=== PATIENT | male | born 1940 | race Caucasian/White ===

== ENCOUNTER 2018-04-25 18:21 | Emergency (ER) | payer MEDICARE ==
[~2018-04-25] VITALS: Ht 185.4 cm; Wt 136.1 kg
[~2018-04-25 18:21] MED LIST: ASPIR-LOW81 MG PO; ASPIRIN EC325 MG PO; DOXAZOSIN MESYLA2 MG PO; IBUPROFEN600 MG PO; INDOMETHACIN50 MG PO; LIPITOR20 MG PO; LISINOPRIL-HCT1 EAC1 PO; MOBIC7.5 MG PO; NICORETTE4 M1 BUCCAL
== END 2018-04-25 19:56 | disposition home or self-care (01) ==
LOC: ED 18:21
DX: M17.12 Unilateral primary osteoarthritis, left knee (principal); I10 Essential (primary) hypertension; Z87.891 Personal history of nicotine dependence; Z79.899 Other long term (current) drug therapy
CPT/HCPCS: 73560; 99283

== ENCOUNTER 2021-03-01 03:52 | Emergency (ER) | payer MEDICARE ==
[~2021-03-01] VITALS: Ht 185.4 cm; Wt 136.1 kg
[2021-03-01] MEDS ORDERED: METOPROLOL SUC100 MG PO (04:04)
--- NOTE | 2021-03-01 18:43 | EKG ---
[facility] [address] [place] [address] Signed Sinus tachycardia with premature ventricular complexes or fusion complexes Nonspecific ST abnormality Abnormal ECG When compared with ECG of 11-SEP-2016 10:24, fusion complexes are now present premature ventricular complexes are now present premature supraventricular complexes are no longer present Vent. rate has increased BY 44 BPM Confirmed by MEGAN SCHRADER DO ([id number]) on 03/01/2021 6:43:36 PM Electronically Signed By: MEGAN SCHRADER DO 03/01/21 1843 PATIENT NAME: MELANIE HORN Electrocardiogram DATE OF : 42 PHYSICIAN: MEGAN SCHRADER DO REPORT #: [id number] REPORT IS CONFIDENTIAL AND NOT TO BE RELEASED WITHOUT AUTHORIZATION
== END 2021-03-01 08:59 | disposition short-term general hospital (02) ==
LOC: ED 03:52
DX: I71.02 Dissection of abdominal aorta (principal); K66.1 Hemoperitoneum; N28.9 Disorder of kidney and ureter, unspecified; I10 Essential (primary) hypertension; Z20.822 Contact with and (suspected) exposure to COVID-19; F17.200 Nicotine dependence, unspecified, uncomplicated; Z79.899 Other long term (current) drug therapy; Z86.73 Personal history of transient ischemic attack (TIA), and cerebral infarction without residual deficits
CPT/HCPCS: 51702; 71045; 71250; 74176; 80053; 81001; 84484; 85025; 87088; 93005; 93010; 99285-25; J2270; J2405; J7030; U0003

== ENCOUNTER 2021-04-27 18:48 | Inpatient (IN) | payer MEDICARE ==
[~2021-04-27] VITALS: Ht 185.4 cm; Wt 115.0 kg
[~2021-04-27 18:48] MED LIST changes: +METOPROLOL SUC100 MG PO
[2021-04-27] MEDS ORDERED: CHANTIX1 EACH PO (19:20)
--- NOTE | 2021-04-27 22:45 | NUR ---
PT ADMITTED TO CCU ROOM 126 FOR COVID PNEUMONIA. ARRIVES AWAKE AND ALERT ON NRB 15+L WITH SATS 90-91%. ASKED PT HOW HE IS DOING AND HE STATES "I FEEL ALRIGHT". RT IN ROOM TO PLACE PT ON CPAP, 14 AND 100% FIO2 SPO2 100%. ABG DRAWN BY RT. ASSESSMENT DONE/ LUNGS DIMINISHED THROUGHOUT WITH FEW COARSE SOUNDS HEARD IN BASES. PT DENIES NEED, CALL LIGHT IN REACH.
--- NOTE | 2021-04-28 | NUR ---
PT HAS BEEN FUMBLING AROUND WITH CPAP MASK, VERY IRRITATED WITH IT. SWITCHED OVER TO NRB 15+L AND SATS STAY 95% OR GREATER.
--- NOTE | 2021-04-28 00:44 | NUR ---
PT STATED GETTING UP TO EDGE OF BED "I NEED TO PEE". HAD NRB MASK ON 15+L, SPO2 REMAINED HIGH 80'S TO 90'S. ASSISTED TO STAND UP AND TRIED TO USE URINAL BUT THEN COULD NOT VOID, INC URINE NOTED ON LINENS, LINEN CHANGE DONE WITH PT STANDING UP- SATS DROPPED TO 84%, PT ASSISTED BACK INTO BED, AND SATS UP TO 90'S QUICKLY. TRIED GETTING PT INTO PRONE POSITION BUT PT KEPT PULLING OFF NRB MASK SO SWITCHED TO HIGH FLOW CANNULA WITH PT IN 3/4 PRONE POSITION, PT MOVING SELF FAIRLY WELL IN THE BED. SPO2 97% ON HIGH FLOW AT 10L.
--- NOTE | 2021-04-28 02:00 | NUR ---
PT HAS BEEN RESTING IN THE SAME POSITION FOR THE LAST COUPLE OF HOURS WITH SATS IN MID 'S.
--- NOTE | 2021-04-28 02:23 | NUR ---
ALL LEADS OFF PER MONITOR, IN TO CHECK ON PT WHO IS STANDING IN BATHROOM AT TOILET URINATING. PT REMOVED ALL MONITOR LEADS AND HAD ALSO PULLED IV FROM RIGHT HAND, CATHETER TIP INTACT. ALSO REMOVED OXYGEN; 15L HIGH FLOW NC PLACED BACK ON PT. RE-DRESSED IV IN LEFT WRIST AND MOVED INFUSION TO THAT SITE. CARDIAC LEADS REPLACED. BED ALARM NOW ON FOR SAFETY. ON ROOM AIR, SPO2 DROPPED TO 84%, QUICKLY RECOVERED TO >90% ONCE OXYGEN BACK ON.
--- NOTE | 2021-04-28 05:15 | NUR ---
PT HAD BEEN SLEEPING WEARING HIGHFLOW CANNULA WITH SATS ABOVE 90%. LAB IN TO DRAW BLOOD AND PT GOT UP TO USE URINAL, SATS DOWN TO 70'S THEN LOWER SPO2 MONITOR STOPPED SENSING. PT BACK IN BED ON HIS SIDE WITH HIGH FLOW CANNULA ON, SATS SLOWLY UP TO LOW TO MID EIGHTIES. TRIED TO PLACE CPAP BUT CPAP NOT WORKING, CALLED RT AND THEY WILL COME SOON THEY CAN. MEANWHILE PT PLACED ON NRB 15+L AND SATS SLOWLY UP TO 90%. THEN RT IN ROOM TO SET UP CPAP, 14/100% WITH SPO2 100%. PT RESTING ON LEFT SIDE CALL LIGHT IN HAND.
--- NOTE | 2021-04-28 07:05 | NUR ---
PT CONT TO REST ON CPAP, HAS BEEN TITRATED DOWN TO 50% FIO2 AND SPO2 92%.
--- NOTE | 2021-04-28 07:15 | NUR ---
PT GOT UP, SETTING OFF BED ALARM AND HAD REMOVED CPAP TO USE URINAL AT BEDSIDE WITH SATS DROPPING TO 70'S WITH PT VERY SOB AND INCREASED WORK OF BREATHING. REMINDED HIM TO PLEASE CALL WHEN HE NEEDS TO GET UP AND NOT TO REMOVE OXYGEN, CPAP PLACED AND SATS UP TO 95%. CALL LIGHT IN REACH.
--- NOTE | 2021-04-28 07:16 | NUR ---
PTS HEARTRATE HAD GOTTEN UP TO 130'S WHILE UP USING URINAL AND RECOVERING AT EDGE OF BED.
--- NOTE | 2021-04-28 09:45 | NUR ---
SBA/PATIENT STANDING AT SIDE OF BED USING URINAL. BEDBATH COMPLETE, LINENS CHANGED. PATIENT WAS ALSO INCONTINENT OF URINE. CPAP REMOVED BRIEFLY FOR DRINK OF WATER. PATIENT BACK TO BED. CALL LIGHT IN REACH
--- NOTE | 2021-04-28 11:00 | NUR ---
PATIENT PLACED ON 15LNC AND PROVIDED FRESH CUP OF COFFEE PER REQUEST.
--- NOTE | 2021-04-28 13:00 | NUR ---
PATIENT ON 15LNC AND SITTING UP IN CHAIR, LEGS ELEVATED. TOLERATING WELL. CALL LIGHT AND WATER IN CLOSE REACH.
--- NOTE | 2021-04-28 14:00 | NUR ---
PATIENT ASKED TO SPEAK WITH HIS DAUGHTER, RN NOTIFIED.
--- NOTE | 2021-04-28 17:18 | NUR ---
SPOKE WITH DAUGHTER NITA EDGAR. SHE STATES PATIENT IS NOW LIVING WITH HER. HE HAD SURGERY MONTH AGO IN [place] AND WAS SENT HOME WITH OXYGEN THROUGH [facility], BUT HAD WEANED OFF IT BEFORE HE GOT COVID. THEY STILL HAVE CONCENTRATOR. HE ALSO WAS SENT HOME WITH W/C AND WALKER. HE HAS NOT NEEDED THEM LATELY. HE IS ABLE TO AMBULATE AND MOVE SELF SAFELY. STATES HE ALSO HAS A CANE. SHE HAS A BATHROOM SHOWER BENCH. SHE STATES HE HAD MODERNA VACCINE BOTH INJECTIONS IN DECEMBER 10. SHE HAD COVID FIRST, SHE FEELS VERY GUILTY HE GOT THIS BEING AT HOME WITH HER. SHE PLANS FOR HIM TO RETURN. WE DISCUSSED WE GET CLOSER TO DISCHARGE WE WILL SEE WHAT ELSE HE MAY NEED. QUESTIONS ANSWERED. SHE STATES HE HAS NO FINANCIAL STRAIN FOR MEDS/FOOD/UTILITIES. CM WILL CONTINUE TO FOLLOW.
--- NOTE | 2021-04-28 19:30 | NUR ---
REPORT RECEIVED FROM ROSALIND DANGELO. PT UP IN CHAIR, CALLS TO HAVE TABLE MOVED, AND TV TURNED UP. CALL LIGHT IN REACH, REMINDED TO PLEASE CALL IF HE NEEDS TO GET UP AND HE AGREES TO.
--- NOTE | 2021-04-28 19:41 | NUR ---
PT USES CALL LIGHT EXCESSIVELY ALL SHIFT, PT ADMITS TO BEING BORED. PT IS COMPLIANT WITH CPAP AND HIGHFLOW NC. PT VITALS REMAIN THE SAME. PT IS ALERT AND ORIENTED ALL SHIFT. HE OCCASIONALY DOES NOT FOLLOW DIRECTIONS....GOT UP OUT OF THE CHAIR WITH OUT CALLING FIRST, AMBULATED ACROSS THE ROOM, AND THEN TAKES A NEW PAIR OF SOCKS OUT OF THE CUPBOARD. DURING THIS ACTIVITY, PT PULLS OUT HIS IV SITE, AND HAS NO FORM OF O2 ON. THREE ATTEMPTS REQUIRED TO ESTABLISH NEW IV SITE. PT STATES "YOU CAUGHT ME". PT HAS CALL LIGHT AT ALL TIMES. PT ABLE TO VOID INTO THE URINAL AT THE BEDSIDE.
--- NOTE | 2021-04-28 20:35 | NUR ---
IN TO DO HS MEDS AND ASSESSMENT. PT IS UP IN CHAIR WATCHING TV WITH NUMEROUS SMALL REQUESTS. CURRENTLY ON HIGH FLOW CANNULA 15L AND SPO2 HAS BEEN TRENDING DOWN TO 82-85%. ASKED PT TO GET BACK IN BED SO HE CAN WEAR CPAP AND TRY TO RELAX AND PRONE IN BED AND HE AGREES. RT IN TO ASSIST. PT PLACED ON CPAP PER RT AND SPO2 UP TO LOW THEN HIGH NINETIES WITH CPAP AT 14/60%. CALL LIGHT IN HAND AND BED ALARM ON.
--- NOTE | 2021-04-28 21:51 | NUR ---
PT HAD LAID IN BED APPROX 15 MINUTES WEARING CPAP WHEN HE CALLED TO USE URINAL, BY THE TIME THIS RN GOT IN THERE HE HAD REMOVED CPAP BUT WAS STILL LYING IN BED, THEN HE SAT HIMSELF UP AND O2 SATS DROPPED TO THE 60'S. PLACED CPAP BACK ON AND SATS CAME UP TO 90'S. PT WAS NOT ABLE TO VOID IN THE URINAL BUT ATTENDS WAS WET SO FRESH ONE PUT ON AND PT ASSISTED BACK TO LIE DOWN AND TRY TO SLEEP WITH CALL LIGHT IN HAND AND BED ALARM ON. CPAP ON AND SPO2 100%.
--- NOTE | 2021-04-28 23:32 | NUR ---
PT CALLED TO STATE "IM NOT GETTING ANY AIR". HAD BEEN WEARING HIGH FLOW CANNULA AND TAKEN OFF O2 SENSOR, FOUND TO BE 81% ON HIGH FLOW-SWITCHED OVER TO CPAP AND SATS QUICKLY UP TO HIGH NINETIES.
--- NOTE | 2021-04-29 00:06 | NUR ---
DR LOPEZ UPDATED REGARDING PTS DIFFICULTY FALLING ASLEEP/RESTLESSNESS. ORDER GIVEN FOR TRAZADONE.
--- NOTE | 2021-04-29 00:11 | NUR ---
PT CALLED TO BE TAKEN OFF CPAP. INFORMED HIM OF NEW TRAZADONE ORDER, AND WILL COME IN WITH MEDICATION AND SWITCH HIM OVER.
--- NOTE | 2021-04-29 00:31 | NUR ---
IN TO GIVE TRAZADONE 25MG PO FOR RESTLESSNESS/INSOMNIA. PT TAKEN OFF CPAP, TOOK MED THEN ASKED TO USE URINAL. PLACED ON HIGH FLOW CANNULA, STOOD UP AT BEDSIDE TO VOID INTO URINAL. HR WENT UP TO 120'S WHILE PT STANDING THEN BACK DOWN TO 110'S ONCE HE SAT DOWN. THEN HE ASKED TO BLOW HIS NOSE, SATS DOWN TO 60'S WITH MOVING THE CANNULA OUT OF THE WAY, HAD PT STOP AND THEN HAD HIM LIE BACK DOWN TO RECOVER. SATS DID NOT GET OUT OF THE 70'S SO SWITCHED HIM OVER TO NRB AT 15+L AND SPO2 UP TO 88%. ENCOURAGED HIM TO RELAX AND TRY TO SLEEP, CALL LIGHT IN HAND.
--- NOTE | 2021-04-29 01:40 | NUR ---
PT CALLS TO ASK IF EXIT SIGN IN THE HALLWAY IS SUPPOSED TO BE LIT UP, SECOND DOSE OF 25MG TRAZADONE GIVEN.
--- NOTE | 2021-04-29 02:30 | NUR ---
PT CALLED TO USE URINAL, UP WITH ASSIST BUT UNABLE TO VOID, BACK TO BED. PT CONTINUES ON NRB 15+L
--- NOTE | 2021-04-29 03:07 | NUR ---
PT CALLED TO TRY TO USE URINAL TWICE NOW STATING "I THOUGHT I HAD TO PEE BUT I DONT". HR UP TO 120'S WITH ACTIVITY OF SITTING UP AT EDGE OF BED. ASSISTED JADEN OT BED, ALL LIGHTIN HAND
--- NOTE | 2021-04-29 03:40 | NUR ---
PT CALLED TO URE URINAL, UP TO VOID 100ML DARK URINE WEARING NRB MASK. ASKED PT IS HE HAD BEEN ABLE TO SLEEP AND HE STATED "YEAH I THINK SO". HR INCREASED TO 120'S AND RESPIRATIONS VERY LABORED AND DROPPING O2 SATS. PT BACK IN BED, CPAP PLACED AND SATS UP TO 80'S THEN LOW 90'S. PLACED GATES CATHETER WITH IMMEDIATE RETURN OF 600ML HARIS URINE. PT LEFT LYING ON RIGHT SIDE, TRYING TO GET BACK TO SLEEP WEARING CPAP.
--- NOTE | 2021-04-29 04:25 | NUR ---
PT CALLED BECAUSE HE HAD TAKEN CPAP OFF FOR UNKNOWN REASON AND WANTED HELP GETTING IT BACK ON. ENCOURAGED HIM TO RELAX AND TRY TO SLEEP.
--- NOTE | 2021-04-29 04:34 | NUR ---
PT CALLED FOR HELP FINDING A TV STATION. ENCOURAGED HIM TO TRY TO SLEEP HE HAS NOT SLEPT MUCH ALL NIGHT.
--- NOTE | 2021-04-29 04:47 | NUR ---
PT REMOVED CPAP WITH SATS DROPPING SO THAT HE COULD TURN UP THE VOLUME ON THE TV WITH HIS REMOTE. CPAP REPLACED AND REMOTE TAKEN AWAY FROM PT, TV TURNED OFF AND PT INSTRUCTED THAT HE TRY TO SLEEP AND IMPORTANCE OF SLEEP DISCUSSED WITH PT.
--- NOTE | 2021-04-29 04:59 | NUR ---
DR LOPEZ UPDATED ON PT NOT SLEEPING AND RESTLESSNESS. ORDER GIVEN FOR 12.5MG SEROQUEL.
--- NOTE | 2021-04-29 06:00 | NUR ---
LAB IN TO DRAW. PT GIVEN SEROQUEL 12.5MG PO. PT NOT TOLERATING HIGH FLOW CANNULA, SPO2 80-85%. SWITCHED OVER TO CPAP AND SATS UP TO 98%. PT STATES HE WILL TRY TO KEEP CPAP ON FOR AN HOUR.
--- NOTE | 2021-04-29 08:00 | NUR ---
THIS LABORATORY HELPER IN ROOM, PATIENT IS SITTING AT SIDE OF BED NASAL CANULA IN HAND. PATIENT IS QUITE AGITATED AT THIS TIME AND STATES IT'S FRUSTRATING THAT HE AND THE DR ARENT ABLE TO COMMUNICATE BETTER BECAUSE OF THE NOISE OF THE MACHINES. PATIENT REPEATEDLY ASKS "HOW MUCH LONGER" UNTIL HE'S BETTER. THIS LABORATORY HELPER AND RT RENATO EXPLAINS TO PATIENT THERE IS NO "DEFINITE ANSWER, IT JUST TAKES TIME AND PATIENCE. PATIENT IS ALSO REMINDED OF IMPORTANCE OF LEAVING HIS NC OR O2 MASK IN PLACE. LESLY SAYS "OK" YET CONTINUES TO EXPRESS ANGER AND CONFUSION. PATIENT NOW SET UP FOR BREAKFAST, HIGH FLOW NC IN PLACE. RN NOTIFIED.
--- NOTE | 2021-04-29 12:32 | NUR ---
Daughter now in room with patient, she is his care provider and they live together at home. Appropriate PPE provided.
[2021-04-29] MEDS ORDERED: DOXAZOSIN MESYLA8 MG PO (12:42)
[2021-04-29] MEDS ORDERED: ADULT ASPIRIN R81 MG PO (12:43)
[2021-04-29] MEDS ORDERED: SINUS & ALLERG1 EACH PO (12:45)
[2021-04-29] MEDS ORDERED: AFRIN15 ML NAS (12:45)
--- NOTE | 2021-04-29 12:46 | NUR ---
MED REC COMPLETE
--- NOTE | 2021-04-29 15:46 | NUR ---
NO CHANGE IN DISCHARGE PLAN.
--- NOTE | 2021-04-29 20:18 | NUR ---
PT STARTED OFF THE DAY BEING CONFUSED, ANGRY, AND DEMANDING. PT REPORTED HAVING A HARD TIME UNDERSTANDING WHAT WAS GOING ON, DISPITE MULTIPLE EXPLANIATIONS. PT'S DAUGHTER CALLED, CONFIRMED SHE IS HIS ACTUAL CAREGIVER AT HOME, AND IS WILLING TO COME TO THE BEDSIDE WITH HER DAD, SHE STATES SHE HAD COVID ONE MONTH AGO. PT ABLE TO CALM DOWN AND APPEARS MUCH HAPPIER WITH HIS DAUGHTER AT THE BEDSIDE, THIS POSITIVE ATTITUDE LASTS THE REST OF THE SHIFT. PT'S IV SITE REMAINS INTACT ALL DAY AND FLUSHES EASILY. PT GATES CATH IS INTACT WITH GOOD URINE OUTPUT. PT'S VITALS REMAIN WNL, PB SLIGHTLY ELEVATED DISPITE METOPROLOL 50 MG GIVEN THIS AM. PT HAS A SMALL APPITITE, AND STATES HE CAN'T TASTE HIS FOOD VERY WELL. PT STAED IN THE BED ALL DAY EITHER SITTING AT THE SIDE OR LAYING DOWN. PT REPORTS NOT BEING ABLE TO SLEEP LAST NIGHT, BUT WAS ABLE TO SLEEP FOR ABOUT 2.5 HOURS THIS AFTERNOON.
--- NOTE | 2021-04-29 20:50 | NUR ---
SHIFT REPORT RECEIVED FROM LORETO BOYER. PT IS ALERT/ORIENTED, DENIES PAIN. LUNGS DIM THROUGHOUT, PT PLACED ON 15L HIGH FLOW NC PER REQUEST, WAS PREVIOUSLY ON CPAP. HR REGULAR. BOWEL TONES ACTIVE. NO COMPLAINTS OF CHEST PAIN OR NAUSEA. SKIN GROSSLY INTACT. IV PATENT, DRESSING RE-INFORCED. GATES PATENT, CATH CARE PROVIDED. ROBITUSSIN GIVEN PER REQUEST FOR COUGH. PT PROVIDED WITH FRESH ICE WATER AND NEW BOX OF TISSUES PER REQUEST. PT DENIES FURTHER NEEDS AT THIS TIME, CALL LIGHT WITHIN REACH.
--- NOTE | 2021-04-29 21:29 | EKG ---
[facility] [address] [facility] [place] [address] Signed Sinus tachycardia Otherwise normal ECG When compared with ECG of 01-MAR-2021 03:59, fusion complexes are no longer present premature ventricular complexes are no longer present Confirmed by MEGAN SCHRADER DO ([id number]) on 04/29/2021 9:29:26 PM Electronically Signed By: MEGAN SCHRADER DO [id number] PATIENT NAME: JUSTINAMELANIE YI Electrocardiogram DATE OF : 42 PHYSICIAN: MEGAN SCHRADER DO REPORT #: [id number] REPORT IS CONFIDENTIAL AND NOT TO BE RELEASED WITHOUT AUTHORIZATION
--- NOTE | 2021-04-29 21:35 | NUR ---
REMDESIVIR INFUSION COMPLETED. LEVAQUIN INFUSION STARTED. PT ASSISTED TO COVER WITH BLANKETS, NO FURTHER REQUESTS.
--- NOTE | 2021-04-29 23:10 | NUR ---
IN TO START ZOSYN INFUSION. PT SLEEPING, POSITIONED ON LEFT SIDE. RESPIRATIONS EVEN AND UNLABORED. SPO2 96% ON 15L HIGH FLOW NC. GATES EMPTIED.
--- NOTE | 2021-04-30 00:22 | NUR ---
PT CONTINUES TO SLEEP ON LEFT SIDE. NO APPARENT DISTRESS, RESPIRATIONS EVEN AND UNLABORED. 15L HIGH FLOW NC REMAINS IN PLACE. WILL ALLOW FOR REST AT THIS TIME.
--- NOTE | 2021-04-30 02:03 | NUR ---
PT CONTINUES TO SLEEP, NO APPARENT DISTRESS. RESPIRATIONS EVEN AND UNLABORED, 15L HIGH FLOW NC REMAINS IN PLACE. GATES PATENT. ZOSYN CONTINUES TO INFUSE.
--- NOTE | 2021-04-30 03:58 | NUR ---
DESATURATION TO 80% PER MONITOR, IN TO CHECK ON PT WHO HAD TAKEN OFF NC. PLACED IT BACK ON PT, THOUGH PT STATES "I DON'T NEED IT, I'M BREATHING FINE." REMINDED PT THAT EVEN THOUGH HE MAY FEEL LIKE HE IS BREATHING OK, HIS SATURATIONS ARE STILL LOW AND HE IS STILL SICK AND REQUIRING OXYGEN. ASSESSMENT COMPLETED AND UNCHANGED. GATES EMPTIED. IV REMAIN INTACT AND PATENT. PT REPOSITIONED HIMSELF IN BED TO SUPINE AND WAS ABLE TO BOOST HIMSELF UP. PT DENIES FURTHER NEEDS AT THIS TIME, CALL LIGHT WITHIN REACH.
--- NOTE | 2021-04-30 06:13 | NUR ---
IN TO START ZOSYN INFUSION. PT RESTING WITH EYES CLOSED, BUT WOKE WHILE I WAS IN ROOM. IV REMAINS INTACT AND PATENT. 15L HIGH FLOW NC REMAINS IN PLACE. GATES EMPTIED. BREAKFAST ORDER RECEIVED AND CALLED TO KITCHEN. PT DENIES FURTHER REQUESTS AT THIS TIME, CALL LIGHT WITHIN REACH.
--- NOTE | 2021-04-30 09:30 | NUR ---
PATIENT ASSESSMENT COMPLETE. MEDICATIONS GIVEN ORDERED. PATIENT IS ALERT AND ORIENTED X4. LUNG SOUNDS ARE DIMINISHED IN THE UPPER LOBES AND CRACKLES IN THE LOWER LOBES. RR IS 22 AND DENIES FEELING SHORTNESS OF BREATH. HEART SOUNDS ARE WNL. PATIENT IS IN A SINUS RYHTHM. URINE OUTPUT IS CLEAR AND YELLOW. NO BM TODAY. PATIENT UPDATED ON PLAN OF CARE. CALL LIGHT WITHIN REACH NO FUTHER NEEDS.
--- NOTE | 2021-04-30 14:15 | NUR ---
CPAP REAPPLED O2 SATS 83. PATIENT IS SOMEWHAT RESISTANT TO USING CPAP. HOB IS ELEVATED. PATIENT HAS HAD TV ON TODAY.
--- NOTE | 2021-04-30 14:39 | NUR ---
HIGH FLOW NC REAPPLIED PER PATIENT AT 15 LITERS, OFF CPAP NOW.
--- NOTE | 2021-04-30 14:50 | NUR ---
PATIENT REFUSED TO WEAR CPAP WHEN OXYGEN SATURATION IS 80-85% ON THE HIGH FLOW NC. PATIENT SAYS "I DO NOT WANT TO WEAR THAT MASK. " PATIENT ALSO EDUCATED ON REPOSITIONING IN BED. PATIENT DID NOT WANT TO MOVE. CALL LIGHT WITHIN REACH NO FUTHER NEEDS.
--- NOTE | 2021-04-30 15:29 | NUR ---
CPAP REAPPLIED SAT 83. PATIENT CONTINUES TO BE RESISTANT TO TURNING AND UISNG CPAP. DENIES FUTHER NEEDS AT THIS TIME, HOWEVER PATIENT HAS BEEN USING CALL LIGHT FREQUENTLY TODAY. PATIENT HAS MANY REQUEST/NEEDS.
--- NOTE | 2021-04-30 16:30 | NUR ---
PATIENT ASSESSMENT COMPLETE. MEDICATIONS GIVEN ORDERED. PATIENT IS ALERT AND ORIENTED X4. PATIENT LUNG SOUNDS ARE CLEAR IN THE UPPER LOBES AND DIMINISHED IN THE BASES. PATIENT IS ON 15 LITERS OF HIGH FLOW OXYGEN. OXYGEN SATURATION IS 96%. RR IS 19. PATIENT DENIES SHORTNESS OF BREATH. HEART RATE IS 73 BPM AND IS IN SINUS RHYTHM. PATIENT IS ANXIOUS WITH BEING HERE IN THE HOSPITAL. EDUCATED ON THE IMPORTANCE OF WEARING THE CPAP. REPOSITIONED IN BED. URINE OUTPUT IS CLEAR AND YELLOW. NO BM TODAY. BOWEL SOUNDS ARE ACTIVE. UPDATED ON PLAN OF CARE. NO QUESTIONS. CALL LIGHT WITHIN REACH NO FUTHER NEEDS.
--- NOTE | 2021-04-30 19:40 | NUR ---
RECEIVED REPORT FROM [facility]. pt RESTING IN BED. DENIES SOB OR PAIN. MOVING SELF IN BED. CALL LIGHT WITHIN REACH. WHITEBOARD UPDATED.
--- NOTE | 2021-04-30 20:15 | NUR ---
IN TO DO ASSESSMENT. pt ALERT AND TALKING, REPEATS QUESTIONS. DENIES PAIN AND SOB. MEDICATIONS GIVEN. ASSESSMENT DONE. LUNGS DIM IN THE BASES. GATES ARE DONE. ASSISTED pt TO BOOST IN BED. pt ABLE TO DO MOST OF THE WORK HIMSELF WITH VERBAL COACHING. IV MED INFUSING. CALL LIGHT WITHIN REACH.
--- NOTE | 2021-04-30 21:01 | NUR ---
IN TO START ANTIBIOTIC. pt MOVING AROUND IN BED TALKING. NO REQUESTS AT THIS TIME. CALL LIGHT WITHIN REACH.
--- NOTE | 2021-04-30 22:14 | NUR ---
IN ROOM TO CHECK ON PATIENT AND START ZOSYN IV LEVAQUIN COMPLETE. PT DENIES ANY NEEDS AT THIS TIME. CONTINUE TO REINFORCE TO PT TO KEEP OXYGEN TUBING IN HIS NARES, SATS 84% 88% ON HIGH FLOWO2.
--- NOTE | 2021-04-30 22:43 | NUR ---
CALL LIGHT ON. pt ASKED ABOUT WATER SOUND, ORIENTED TO EQUIPMENT. NO REQUESTS AT THIS TIME. CALL LIGHT WITHIN REACH.
--- NOTE | 2021-04-30 23:27 | NUR ---
CALL LIGHT ON. pt STATED HE WAS GOING TO BED. pt REPOSITIONED TO LEFT SIDE, ASKED ABOUT "ANY PILLS" HE COULD TAKE, DENIED SOB AND PAIN. GATES EMPTIED. ASSESSMENT DONE. NO CHANGES. LIGHTS OFF FOR COMFORT. pt REMAINS ON 15L NC. REFUSING CPAP AT THIS TIME. CALL LIGHT WITHIN REACH.
--- NOTE | 2021-05-01 00:05 | NUR ---
CALL LIGHT ON. pt ASKED TO GET UP TO HAVE BM. 1PA TO BSC AND BACK TO BED. pt TALKED THROUGHOUT, DENIED SOB. WHEN BACK TO BED O2 SAT 45-50% ON 15L NASAL CANNULA. pt CONTINUED TO DENY SOB. AFTER MUCH DISCUSSION pt AGREED TO TRY CPAP. MASK APPLIED pt O2 SAT INCREASED QUICKLY TO MID 90'S. Fi02 60%. RESTING ON LEFT SIDE IN BED. CALL LIGHT WITHIN REACH.
--- NOTE | 2021-05-01 00:26 | NUR ---
CALL LIGHT ON. pt REQUESTED TO BE OFF THE CPAP, DISCUSSED IMPORTANCE OF WEARING IT, pt REFUSES AT THIS TIME. GAVE PRN FOR AGITATION. pt CONTINUED TO REFUSE CPAP ASKED TO WEAR NON REBREATHER 15L. SATS INCREASED FROM 60% TO MID 80'S. CALL LIGHT WITHIN REACH.
--- NOTE | 2021-05-01 01:30 | NUR ---
ROUNDED ON pt. RESTING ON RIGHT SIDE. O2 SAT 99%. TITRATED NRB TO 10L AND HIGH FLOW NASAL CANNULA TO 6L. SATS 98%. pt RESTING WITH EYES CLOSED, RESPIRATIONS REGULAR. CALL LIGHT WITHIN REACH.
--- NOTE | 2021-05-01 03:46 | NUR ---
PATIENT TAKING HIS OXYGEN OFF AND PULLING AT HIS PENIS. REPORTS NEED TO PEE. REORIENTED TO GATES IN PLACE. REPLACED PULSE OX, PATIENT'S O2 SATS 57% ON ROOM AIR. 15L HIGH FLOW NC AND NON REBREATHER PLACED ON PATIENT. TOLD PATIENT TO LEAVE IN PLACE. PATIENT LEAVES THEM IN PLACE AT THIS TIME.
--- NOTE | 2021-05-01 05:05 | NUR ---
CALL LIGHT ON. pt REQUESTED ASSISTANCE WITH TV. ASSESSMENT DONE. DENIES SOB OR PAIN. CALL LIGHT WITHIN REACH.
--- NOTE | 2021-05-01 07:44 | NUR ---
PATIENT ASSESSMENT COMPLETE. MEDICATIONS GIVEN ORDERED. PATIENT IS ALERT AND ORIENTED X4. LUNG SOUNDS ARE DIMINISHED THROUGHOUT. PATIENT IS ON HIGH FLOW OXYGEN AND THE NRB AT 15 LITERS. OXYGEN SATURATION IS 90%. RR IS 25. PATIENT DENIES ANY SHORTNESS OF BREATH. HEART SOUNDS ARE WNL. HEART RHYTHM IS SINUS RHYTHM. PATIENT URINE IS YELLOW AND CLEAR. PATIENT HAD A BM EARLIER THIS MORNING. PATIENT DENIES ANY PAIN. UPDATED ON PLAN OF CARE CALL LIGHT WITHIN REACH NO FUTHER NEEDS.
--- NOTE | 2021-05-01 07:45 | NUR ---
REPORT RECIEVED FROM LORETO MORATAYA. PATIENT IS RESTING IN BED. BREATHING IS EQUAL AND UNLABORED. CALL LIGHT WITHIN REACH NO FUTHER NEEDS.
--- NOTE | 2021-05-01 09:30 | NUR ---
PATIENT DAUGHTER CALLED WITH AN UPDATE ON PLAN OF CARE. PATIENT HAS TRANSFER ORDERS TO THE MEDICAL SURGICAL FLOOR. DAUGHTER WILL BE IN TODAY TO HELP WITH CARES. SHE DID NOT HAVE QUESTIONS AT THIS TIME. CALL LIGHT WITHIN REACH NO FUTHER NEEDS.
--- NOTE | 2021-05-01 10:15 | NUR ---
REPORT GIVEN TO LORETO MARKS. PATIENT WAS TRANSFERED TO THE MEDICAL SURGICAL FLOOR BY BED. PATIENT WAS ON NRB 15 LITERS WHEN MOVED. THE PATIENT OXYGEN SATURATIONS WERE 92% ON THE TRANSFER. PATIENT BREATHING IS EQUAL AND UNLABORED.
--- NOTE | 2021-05-01 11:31 | NUR ---
REPORT RECIEVED FROM CCU RN. PT. ARRIVED VIA BED WITH CHARGE NURSE. PT. IS ON HIGH FLOW NC AT 15L AND 02 SAT IS 85%. PT. PLACED ON CPAP AND O2 SAT. INCREASED TO 92%. LUNGS. DIM IN THE BASES. LEFT TOES ARE RED BUT BLANCHABLE. PT. ASSISTED WITH REPOSITIONING SO THAT FEET ARE NOT FOOTBOARD. Y CONNECTOR RECEIVED 02. IV SITE WNL AND SALINE LOCKED. BED ALARM ON. PT. LEFT RESTING WITH CALL LIGHT IN REACH.
--- NOTE | 2021-05-01 12:16 | NUR ---
PT. ASSISTED WITH REMOVING CPAP AND REPLACING WITH HF NC AND NRB BOTH AT 15L. O2 SAT IS 91%. HELPED WITH TV. BED ALARM ON
--- NOTE | 2021-05-01 16:33 | NUR ---
MD ORDER FOR VAPOTHERM. RT IN THE ROOM TO SET UP.
--- NOTE | 2021-05-01 17:00 | NUR ---
MONITOR SHOWS PT. AT 86% O2 SAT ON VAPOTHERM 40L, 100% FIO2. NRB AT 15L PLACED OVER AND 02 SAT. INCREASED TO 91%. PT. LEFT RESTING WITH CALL LIGHT IN REACH.
--- NOTE | 2021-05-01 19:05 | NUR ---
REPORT RECEIVED FROM OFFGOING RNKENDRICK.
--- NOTE | 2021-05-01 21:12 | NUR ---
API DEVELOPER TO ROOM FOR IV PUMP ALARMING. PT FOUND WITH IV PULLED OUT. IV RESTARTED, PT TOLERATED WELL. PT DENIES PAIN, NAUSEA, OR SOB. PT STATES "I FEEL FINE". PT DISORIENTED TO DATE. OTHERWISE ORIENTED. VAPOTHERM IN PLACE AT 40/100%, NON REBREATHER @ 15LPM. API DEVELOPER ADJUSTS THESE SEVERAL TIMES WHILE IN ROOM PT FIDGETING WITH, STATES WHEN CAN I TAKE THESE OFF? EDCUATION PROVIDED THAT PT NEEDS TO LEAVE THESE ON. PT STATES AGREEMENT. LUNG SOUNDS DIM IN BILATERAL BASES. NO COUGH NOTED DURING ASSESSMENT. SCHEDULED MEDICATIONS ADMINISTERED. PT DENIES FURTHER NEEDS AT THIS TIME. CALL LIGHT IN REACH.
--- NOTE | 2021-05-01 22:15 | NUR ---
REAL ESTATE LEASING AGENT TO ROOM FOR SCHEDULED MED ADMINISTRATION. PT RESTING IN BED WATCHING TV. DENIES NEEDS AT THIS TIME. CALL LIGHT IN REACH.
--- NOTE | 2021-05-02 00:51 | NUR ---
PT ROUNDING. PT RESTING IN BED WITH EYES CLOSED. RESPIRIATIONS EVEN AND UNLABORED. TELE WITH HR 60'S SAO2 91%. PT DOES NOT WAKE WHILE SUPERVISOR SANDING AT DOORWAY. CALL LIGHT IN REACH.
--- NOTE | 2021-05-02 03:15 | NUR ---
NETWORK CONTROL OPERATORS SUPERVISOR TO ROOM FOR SAO2 85%, PT HAS VAPOTHERM AND NONREBREATHER OFF. STATES HE NEEDS TO USE THE BED DON. PT ASSISTED ONTO AND OFF OF BED DON. PT ASSESSMENT COMPLETE. PT DENIES PAIN, NAUSEA, OR SOB. LUNG SOUNDS CLEAR IN UPPER LOBES, DIM IN BILATERAL LOWER LOBES. NONPRODUCTIVE COUGH NOTIDED DURING ASSESSMENT. SAO2 92% ON VAPOTHERM 40/100% AND NON REBREATHER AT 15LPM. PT TAKING MASK AND CANNULA OFF WHILE NETWORK CONTROL OPERATORS SUPERVISOR AT BEDSIDE TO BLOW HIS NOSE. GATES CATH DRAINING CLEAR YELLOW URINE. IV MEDICATION INFUSING ORDERED.
--- NOTE | 2021-05-02 04:12 | NUR ---
MAINTENANCE TECHNICIAN 3RD SHIFT TO ROOM FOR DESATURATION AT 84-86%. PT FOUND WITH VAPOTHERM CANNULA AND NONREBREATHER OFF. RT EDUCATION PROVIDED. ENCOURAGED PT LEAVE [address] PT STATES UNDERSTANDING. PT DENIES FURTHER NEEDS AT THIS TIME. CALL LIGHT IN REACH.
--- NOTE | 2021-05-02 06:02 | NUR ---
FOOTBALL SCOUT TO ROOM FOR VS AND TO EMPTY GATES. CATH SECURE DEVICE PLACED. ICE WATER PROVIDED. TRASH EMPTIED. PT DENIES FURTHER NEEDS AT THIS TIME. CALL LIGHT IN REACH.
--- NOTE | 2021-05-02 08:15 | NUR ---
Tessalon Perles 100mg po and tylenol 500mg po admin for cough and rib pain.
--- NOTE | 2021-05-02 10:18 | NUR ---
Patient on left lateral side resting, eyes closed, respirations even non labored. Patient is currently on 40L/100 vapotherm, sp02 95% at this time. Patient tolerated breakfast well, sp02 dropped to 86% while eating on the vapotherm, 40L/100. Patient has no notable needs. Personal supplies and call light within reach.
--- NOTE | 2021-05-02 14:30 | NUR ---
2PA WITH EWA PAN, PATIENT WAS INCONTINENT OF STOOL. GATES CARE PROVIDED, LINENS CHANGED. VITALS AND I&OS CHARTED. CALL LIGHTIN REACH
--- NOTE | 2021-05-02 15:35 | NUR ---
Patient pulled off his CPAP and is refusing to continue wearing it. Pt placed back to vapotherm at 50L/100. Patient receptive to wearing the vapotherm at this time. Encouraged patient to call staff prior to removing his cpap. Call light left within reach of pt.
--- NOTE | 2021-05-02 15:35 | NUR ---
Patient pulled off his CPAP and is refusing continued use. Pt placed back to vapotherm at 40L/100% with non rebreather over Vapotherm @ 15L. Patient receptive to wearing the vapotherm at this time. Encouraged patient to call staff prior to removing his cpap. Call light left within reach. Pt's sp02 is 92%.
--- NOTE | 2021-05-02 16:11 | NUR ---
NO CHANGE IN DISCHARGE PLAN AT THIS TIME.
--- NOTE | 2021-05-02 17:04 | NUR ---
Tessalon perles 100mg po and tylenol 500mg po admin for cough and rib pain.
--- NOTE | 2021-05-02 18:36 | NUR ---
PATIENT IN BED WATCHING TV. VITALS AND I&O'S CHARTED. FRESH WATER GIVEN. CALL LIGHT IN REACH. NO FURTHER NEEDS AT THIS TIME.
--- NOTE | 2021-05-02 19:00 | NUR ---
report received from offgoing rnshante. pt rsting in bed lying on his r side. call light in reach.
--- NOTE | 2021-05-02 19:57 | NUR ---
CRYSTAL INSPECTOR TO ROOM FOR PT DESATURATION, 78%. PT FOUND HOLDING VAPOTHERM CANNULA AND NONREBREATHER MASK. PT ASSISTED TO REPLACE O2 AND SCOOT UP IN BED. SAO2 INCREASED TO 90%. PT ASSESSMENT COMPLETE. TELE #9 HR 80'S. LUNE SOUNDS DIM THROUGHOUT. PT WITH PRODUCTIVE COUGH WHILE CRYSTAL INSPECTOR AT BEDSIDE. VAPOTHERM 40/100. NON REBREATHER 15LPM. IVF INFUSING ORDERED. IV FLUSHED, PATENT. WNL. GATES CATH DRAINING CLEAR YELLOW URINE. PT DENIOES FURTHER NEEDS.C ALL LIGHT IN REACH.
--- NOTE | 2021-05-02 21:50 | NUR ---
OPERATIONS RESEARCH ENGINEER TO ROOM FOR SCHEDULED MED ADMINISTRATION. PT RESTING IN BED WATCHING TV. PT REMOVES NONREBREATHER AND VAPOTHERM TO BLOW HIS NOSE. SAO2 86% ON RA, 93% ON VAPOTHERM AND NONREBREATHER. PT DENIES FURTHER NEEDS AT THIS TIME. CALL LIGHT IN REACH.
--- NOTE | 2021-05-02 23:00 | NUR ---
CONTINUOUS PROCESS MACHINE OPERATOR TO ROOM FOR SCHEDULED MED ADMINISTRATION. PT FIDGETING WITH FACE MASK. STATES THAT HE IS HAVING TROUBLE SLEEPING. CONTINUOUS PROCESS MACHINE OPERATOR ENCOURAGES PT TO WEAR CPAP, MASK PLACED ON PT'S FACE. PT STATES IT IS TOO TIGHT. MASK STRAPS LOOSENED. PT STATES HE CAN'T WEAR IT. VAPOTHERM AND NONREBREATHER REPLACED. PT STATES "I WON'T STRANGLE MYSELF." PT DENIE FURTHER NEEDS AT THIS TIME. CALL LIGHT IN REACH.
--- NOTE | 2021-05-03 00:30 | NUR ---
PT RESTING IN BED WITH EYES CLOSED. RESPIRATIONS EVEN AND UNLABORED. PT APPEARS TO BE SLEEPING. VAPOTHERM AND NONREBREATHER IN PLACE APPROPRIATELY. CALL LIGHT IN REACH.
--- NOTE | 2021-05-03 03:45 | NUR ---
SUPERINTENDENT PRODUCTION TO ROOM FOR PT DESATTING TO LOW 80'S. PT FOUND WITH VAPOTHERM AND NONREBREATHER OFF. SUPERINTENDENT PRODUCTION ASSISTED PT TO REPLACE THESE AND REPOSITION. EDUCATION PROVIDED REGARDING RT TREATMENTS. PT STATES UNDERSTANDING. PT ASSESSMENT COMPLETE. LUNGS DIM THROUGHOUT. NO COUGH NOTED DURING ASSESSMENT. VAPOTHERM SETTINGS 40/100%, NONREBREATHER 15 LPM. TELE # [address] SR, HR 70'S. IVF INFUSING ORDERED, FLUSHED, WNL. PT DENIES FURTHER NEEDS. CALL LIGHT IN REACH.
--- NOTE | 2021-05-03 05:15 | NUR ---
BEATER ENGINEER HELPER TO ROOM TO OBTAIN VS. VS WNL. PT ASKS, "CAN I SLEEP FOR A WHILE?" FRESH ICE WATER PROVIDED. PT DENIES FURTHER NEEDS AT THIS TIME. CALL LIGHT IN REACH.
--- NOTE | 2021-05-03 08:40 | NUR ---
Tessalon perles 100mg po admin for cough.
--- NOTE | 2021-05-03 09:15 | NUR ---
PATIENT REPORT RECIEVED FROM LORETO TRIPATHI. PATIENT IS BEING TRANSFERED BY BED WITH NRB ON.
--- NOTE | 2021-05-03 09:36 | NUR ---
PATIENT ASSESSMENT COMPLETE. MEDICATIONS GIVEN ORDERED. PATIENT IS ALERT AND ORIENTED X4. PATIENT LUNG SOUNDS ARE DIMINISHED THROUGHOUT. PATIENT IS ON CPAP PRESSURE OF 12 AND FIO2 100%. RR IS 18-25. PATIENT DENIES FEELING SHORT OF BREATH. PATIENT IS REQUIRING MORE FI02 AND UNABLE TO COME OFF THE CPAP. PATIENT IS AFEBRILE. PATIENT HEART SOUNDS ARE WNL AND HEART RATE IS 60-80 BPM. PATIENT IS IN SINUS RYHTHM. URINE OUTPUT IS YELLOW AND CLEAR. PATIENT HAD A MEDIUM BM IN BED. LINENS CHANGED. PATIENT IS NOW RESTING ON HIS LEFT SIDE. OXYGEN SATURATION 96%. PATIENT PLAN OF CARE IS UPDATED. NO QUESTIONS AT THIS TIME. CALL LIGHT WITHIN REACH NO FUTHER NEEDS.
--- NOTE | 2021-05-03 11:20 | NUR ---
update from CCU Rn. Pt returned to CCU from the floor due to increase in 02 use.
--- NOTE | 2021-05-03 11:43 | NUR ---
IN PATIENT'S ROOM TO CHECK ON PATIENT AND SILENCE IV PUMPS. PATIENT'S PILO IN ROOM AT THIS TIME. PT REMAINS ASLEEP AT THIS AND STILL IN PRONE POSITION. PT REMAINS ON VAPOTHERM AT 40L AND 100% AND SP02 IS STAYING >90%, RIGHT NOW AT 93%. HR IN THE 100-110s AT THIS TIME. RR RANGING IN THE UPPER 20-LOW 30s WHILE ASLEEP. ASSESSMENT DEFERRED UNTIL PATIENT AWAKENS.
--- NOTE | 2021-05-03 12:00 | NUR ---
TOOK LUNCH WELL. ATE APPLESAUSE AND ENSURE. VAPOTHERM AND NRBM APPLIED WHILE EATING. WAS ABLE TO EVACUATE LARGE BLOOD CLOT FROM NOSE. HAS OCC COUGH. HAS BEEN COMPLIANT USING CPAP SINCE TRANSFER FROM [facility]. FIO2 DECREASED TO 90% O2 SAT 96 ON 100% FIO2.
--- NOTE | 2021-05-03 17:00 | NUR ---
PATIENT ASSESSMENT COMPLETE. PATIENT MEDICATIONS GIVEN ORDERED. PATIENT IS ALERT AND ORIENTED X4. STARTING TO GET ANXIOUS WITH CARES. PATIENT IS ON CPAP PRESSURE OF 14 AND FIO2 OF 60%. RR IS 23. LUNG SOUNDS ARE DIMINSHED THROUGHOUT AND RALES ARE HEARD IN THE BASES. PATIENT HEART SOUNDS ARE WNL. HEART RATE IS 70-80 BPM. HEART RATE IS SINUS RYHTHM. PATIENT URINE IS CLEAR AND YELLOW. PATIENT HAD A BM TODAY. PATIENT IS UPDATED ON PLAN OF CARE. CALL LIGHT WITHIN REACH NO FUTHER NEEDS.
--- NOTE | 2021-05-03 19:47 | NUR ---
RECE[facility] REPORT [facility]. pt SITTING IN BED WITH EYES CLOSED, ON CPAP 14/60% SAT 92%. HR 68. RESPIRATIONS 20. CALL LIGHT WITHIN REACH. WHITEBOARD UPDATED.
--- NOTE | 2021-05-03 20:45 | NUR ---
CALL LIGHT ON. pt REQUESTED TO GO TO VAPOTHERM FROM CPAP. ASSISTED TO SWITCH EQUIPMENT. pt PROVIDED WITH COFFEE PER REQUEST. DENIES NEED FOR COUGH MEDICATION OR PAIN MEDS. CALL LIGHT WITHIN REACH.
--- NOTE | 2021-05-03 21:20 | NUR ---
pt ON JUST VAPOTHERM 40L/100% SATS MID 90'S. RESPIRATIONS RATE 16. HR 62. CALL LIGHT WITHIN REACH. SITTING IN BED DRINKING COFFEE.
--- NOTE | 2021-05-03 21:45 | NUR ---
IN TO GIVE MEDICATIONS AND DO ASSESSMENT. pt SITTING IN BED WATCHING TV, DRINKING COFFEE. pt DENIES PAIN. SATS MID TO LOW 90'S ON VAPOTHERM 40L/100%. ASSESSMENT DONE. LUNGS DIM THROUGHOUT. GATES CARE DONE. YELLOW URINE. ASSISTED pt TO REPOSITION. MEDICATIONS GIVEN (SEE MAR). PROVIDED FRESH WATER. CALL LIGHT WITHIN REACH.
--- NOTE | 2021-05-03 22:18 | NUR ---
IN TO START IV ANTIBIOTIC. pt SITTING IN BED WATCHING TV. NO REQUESTS AT THIS TIME. CALL LIGHT WITHIN REACH.
--- NOTE | 2021-05-03 23:16 | NUR ---
CALL LIGHT ON. pt REQUESTED "MORE AIR ON MY FACE" PROVIDED NRB. VAPOTHERM 40L/100%, pt REFUSED CPAP AT THIS TIME. SATS LOW 90'S. CALL LIGHT WITHIN REACH.
--- NOTE | 2021-05-04 00:30 | NUR ---
CALL LIGHT ON. pt REQUESTING "MORE AIR", ENCOURAGED CPAP USE, pt HESITANT TO USE. PLACED, 14/60%. ASSISTED pt TO ROLL TO LEFT SIDE. LUNGS ASSESSED. MORE DIM ON LEFT SIDE THAN RIGHT. DIM THROUGHOUT. GATES EMPTIED. pt TOLERATING CPAP AT THIS TIME. CALL LIGHT WITHIN REACH.
--- NOTE | 2021-05-04 01:40 | NUR ---
RT IN TO ASSIST pt TO GET CPAP MASK SITUATED. THIS RN IN TO ASSIST. AFTER ADJUSTMENT, pt GAVE THUMBS UP. CALL LIGHT WITHIN REACH.
--- NOTE | 2021-05-04 03:31 | NUR ---
ROUNDED ON pt. RESTING IN BED WITH EYES CLOSED, ON CPAP. SETTINGS 14/60%, RESPIRATIONS REGULAR, LESS LABORED THAN PRIOR. RATE 15. O2 SAT 92%. CALL LIGHT WITHIN REACH.
--- NOTE | 2021-05-04 06:00 | NUR ---
IN TO DO ASSESSMENT. pt REPORTS HE NEEDS "MORE AIR" ASSISTED pt TO BLOW HIS NOSE. pt THEN REQUESTED TO BE ON NRB, SATS MID TO LOW 80'S. ADDED VAPOTHERM 40L/100%. SATS INCREASED TO 88%. PROVIDED COFFEE. ASSESSMENT DONE. NO CHANGES. CALL LIGHT WITHIN REACH.
--- NOTE | 2021-05-04 06:47 | NUR ---
ROUNDED ON pt. SITTING IN BED WATCHING TV. DRINKING COFFEE. TOOK BREAKFAST ORDER. NO REQUESTS AT THIS TIME. CALL LIGHT WITHIN REACH.
--- NOTE | 2021-05-04 07:35 | NUR ---
Report received from restaurant expeditor RN's.
--- NOTE | 2021-05-04 08:18 | NUR ---
HOB up at 45 degrees, eating breakfast, interactive with me. Answering questions, watching TV. Continues with the Vapotherm at 40L and 100%fio2.
--- NOTE | 2021-05-04 08:23 | NUR ---
PATIENT AWAKE IN BED, VITALS AND I&OS CHARTED. GATES EMPTIED. RN HAYDEN AT BEDSIDE.CALL LIGHT IN REACH.
--- NOTE | 2021-05-04 09:01 | NUR ---
nurses aid working with patient doing a bed bath. patient saturations down to 84% with vapotherm only. nonrebreather placed also at 15L flow. saturations 87%. rolling side to side and participating in bed bath.
--- NOTE | 2021-05-04 09:31 | NUR ---
Patient daughter here visiting. Updates given to her. Questions answered.
--- NOTE | 2021-05-04 10:21 | NUR ---
UP TO COMMODE AT SIDE OF BED WITH ASSISTANCE, 1 PERSON ASSIST. CALLED FOR HELP BEFORE GETTING UP. TOLERATING FAIR. O2 SAT DOWN TO 79% WITH ONLY VAPOTHERM. ADDED NONREBREATHER AT 15 AND NOW SATS AT 99% WHILE SITTING ON COMMODE.
--- NOTE | 2021-05-04 10:47 | NUR ---
BACK TO BED AFTER USING COMMODE. HAD A MEDIUM MOSTLY LIQUID BM, BACK TO USING JUST THE VAPOTHERM 40L AND [id number], SATURATIONS CURRENTLY 90%, CALL LIGHT IN REACH, REFUSING TO LAY PRONE OR ON SIDES.
--- NOTE | 2021-05-04 11:04 | NUR ---
DR SCHRADER IN TO SEE PATIENT.
--- NOTE | 2021-05-04 12:13 | NUR ---
PATIENT TOOK OFF CPAP AND PLACED NON REBREATHER BECAUSE COULDN'T REACH/FIND THE VAPOTHERM NC. SATURATIONS DROPPED TO 79%. RECOVERED TO 88% NOW WITH NON REBREATHER AT 10 AND VAPOTHERM AT 40L AND 100%FIO2.
--- NOTE | 2021-05-04 13:33 | NUR ---
POSITIONED SELF IN BED WITH HOB UP AT 45 DEGREES. TOOK OFF NON REBREATHER AND PLACED OXIMASK AT 11L SO CAN DRINK FLUIDS EASIER WITHOUT REMOVING MASK. VAPO THERM ON AT 40L AND 100% FIO2. SATURATION IS NOW 92%
--- NOTE | 2021-05-04 15:47 | NUR ---
patient had been wearing the cpap for about 20 minutes, he took it off and placed the oximask at 11L on and saturations dropped to 79%. I am in room now and placed vapotherm at 40L and 100%fio2 on with the oximask at 11L and now saturations up to 92%. watching TV in bed.
--- NOTE | 2021-05-04 16:03 | NUR ---
WILLING TO TRY PRONE POSITION. ON LEFT SIDE AND SOMEWHAT ON ABDOMEN, BED IN [place]. CALL LIGHT IN REACH.
--- NOTE | 2021-05-04 20:30 | NUR ---
PATIENT PROVIDED WITH SCHEDULED MEDS AND PRNs FOR GENERAL ACHES AND A COUGH. PATIENT IS ALERT AND ORIENTED. TOLERATING VAPOTHERM 40L 100%, OXY MASK ON INTERMITTENTLY AT 10L. PATIENT PROVIDED WITH NEB TREATMENT. LUNGS ARE CLEAR IN UPPER LOBES, DIMINISHED CRACKLES IN STEVE BASES. ASSISTED PATIENT TO REPOSITION, SITTING WITH HOB AT >45 DEGREES. GATES EMPTIED. VS STABLE. BP CUFF OFF PER PATIENT REQUEST. DISCUSSED USE OF CPAP WITH PATIENT AND HE AGREES TO TRY IT WHEN HES READY FOR SLEEP.
--- NOTE | 2021-05-05 00:30 | NUR ---
PATIENT TOLERATING VAPOTHERM AT 40L 100% Fi02. TURNED TO LEFT SIDE. VS STABLE. O2 SATS 88-91%, RR 14-18.
--- NOTE | 2021-05-05 03:23 | NUR ---
PATIENT REPEATEDLY TAKING NC OUT OF NOSE AND PLACING ON FOREHEAD. PATIENT DESATS TO 70'S QUICKLY. DISCUSSED CRUCIAL NEED FOR O2 THERPAY WITH PATIENT. PLACED OXY MASK OVER VAPOTHERM NC PER REQUEST. PATIENT AGREED TO LEAVE THIS IN PLACE. WARM BLANKET PROVIDED.
--- NOTE | 2021-05-05 05:30 | NUR ---
PATIENT CONTINUES TO DESAT DUE TO REMOVING NC. REEDUCATED PATIENT ON PROPER O2 THERAPY. PATIENT ASSISTED TO REPOSITION. VS STABLE. GATES EMPTIED.
--- NOTE | 2021-05-05 07:00 | NUR ---
PT IN ROOM AWAKE. NO NEW CONCERNS NOTED AT THIS TIME.
--- NOTE | 2021-05-05 07:40 | NUR ---
HELPED PATIENT OFF THE BEDPAN, HAD A MEDIUM VERY SOFT BM. HELPED CLEAN MATEO AREA AND CATHETER. NEW BED LINEN. PATIENT REPOSITIONING SELF IN BED. ORDERED BREAKFAST.
--- NOTE | 2021-05-05 08:15 | NUR ---
UPPER LOBES CLEAR, LOWER LOBES HAVE CRACKLES PRESENT WITH THE LLL ALSO BEING DIMINISHED. ABD SOUNDS PRESENT, URINE OUTPUT WDL SO FAR. NO PERIPHERAL EDEMA NOTED. PT HOWEVER DOES HAVE BLANCHABLE REDNESS ON ALL HIS TOES. PT EATING BREAKFAST AT THIS TIME AND IS AT 87% ON VAPOTHERM 40L/100%. WILL CONTINUE TO MONITOR.
--- NOTE | 2021-05-05 09:46 | NUR ---
PT WAS PUT ON C-PAP A FEW MINUTES AGO. FIO2 WAS AT 60%. PT JUST NOW TOOK OFF THE C-PAP MASK AND NEEDED ASSISTANCE TO PUT IT BACK ON. FIO2 FOR NOW AT 80%. WILL CONTINUE TO MONITOR. PT ALSO AT THIS TIME REFUSES TO PRONE.
--- NOTE | 2021-05-05 10:13 | NUR ---
PT AT 0952 HAD 15 BEATS OF V-TACH, PT DENIES CHEST PAIN OR ANY OTHER ISSUES. MD ASTUDILLO NOTIFIED. CHEST X-RAY DONE. CHEST CT TO FOLLOW SOON.
--- NOTE | 2021-05-05 11:00 | NUR ---
LINNENS ON BED WERE CHANGED.
--- NOTE | 2021-05-05 12:15 | NUR ---
RUL HAS WHEEZING PRESENT, BILATERAL LOWER LOBES STILL HAVE CRACKLES PRESENT, RUL IS CLEAR OVERALL. PT VAPOTHERM SETTINGS UNCHANGED AT 40L/100% PT EARLIER REFUSED C-PAP EARLIER AND HAS BEEN ON VAPOTHERM WITH OXY MASK AT 15L SINCE. PT AT THIS TIME STILL REFUSES TO PRONE. ABD SOUNDS PRESENT, NO PERIPH. EDEMA NOTED, AT THIS TIME IS WAS NOTED HOWEVER, PT HAS NOW REDNESS IN BOTH HANDS AND ON ALL TIPS OF HIS FINGERS. REDNESS ON TOES IS UNCHANGED SO FAR.
--- NOTE | 2021-05-05 12:44 | NUR ---
PT WS TRANSFERED TO CT ON NONREBREATH WITH CPAP USED DURING TESTING INCREASED FIO2 TO 100% DURING PROCEDURE , PLACED PATIENT BACK ON N/R TO RETURN TO ROOM WILL TITRATE THE OXYGEN BACK DOWN TO 60% TOLERATED .
--- NOTE | 2021-05-05 14:07 | NUR ---
PT WAS PUT ON C-PAP AT ABOUT 1315. PT TOOK IT OFF AND REFUSED IT AROUND 1330. PRN HALDOL WAS GIVEN PROIOR TO C-PAP USE. PT O2 SATS AT THIS TIME ARE >90% ON VAPOTHERM 40L/100% AND OXY MASK 15L O2.
--- NOTE | 2021-05-05 14:47 | NUR ---
PT AT THIS TIME WAS WILLING TO TURN TO HIS LEFT SIDE. SINCE RETURNING FROM CT, PT HAS REFUSED TO PRONE. WILL CONTINUE TO MONITOR.
--- NOTE | 2021-05-05 15:46 | NUR ---
UPPER LOBES CLEAR, RLL HAS SOME CRACKLES PRESENT, LLL CLEAR. BOTH HANDS AND ALL TOES STILL HAVE REDNESS PRESENT. NO NEW CONCERNS WERE NOTED WITH THIRD ASSESSMENT. WILL CONTINUE TO MONITOR. PT STILL ON HIS LEFT SIDE. VAPOTHERM SETTINGS UNCHANGED.
--- NOTE | 2021-05-05 16:32 | NUR ---
Update from Rn. States pt had Chest CT today, pt maxed out on vapotherm with oxymask at 15l. No plan for dc at this time.
--- NOTE | 2021-05-05 17:30 | NUR ---
PT STILL OUTRIGHT REFUSES TO WEAR THE C-PAP. PT HAS THE LARGEST MASK THAT WE HAVE ON THE C-PAP. PT STATED THAT THE MASK WAS TO SMALL FOR HIM AND THAT HE CANNOT BREATH WITH IT ON. OT ALSO THIS AFTERNOON HAS REFUSED TO PRONE FOR ANY LENGTH OF TIME. MD ASTUDILLO IS AWARE. WILL CONTINUE TO MONITOR. O2 SATS WITH VAPOTHERM AT 40L/100% AND OXY MASK 15L O2 FROM 84%-92%.
--- NOTE | 2021-05-05 20:00 | NUR ---
PATIENT PROVIDED WITH EVENING MEDS INCLUDING PRN MEDS. PATIENT IS RESTING IN THE BED. NOT AGREEABLE TO REPOSITIONING OR WEARING CPAP. TAKING VAPOTHERM NC OFF REGULARLY. DISCUSSED NEED FOR O2 THERAPY WITH PATIENT. NASAL SPRAY PROVIDED AND PATIENT ABLE TO CLEAR SOME SECREATIONS. VS STABLE. GATES EMPTIED. PATIENT ASSISTED TO REPOSITION. PATIENT AGREES TO WEAR CPAP FOR 1 HOURS. CPAP PLACED. PATIENT HAS CALL LIGHT AND IS WATCHING TV.
--- NOTE | 2021-05-05 20:15 | NUR ---
PATIENT REMOVED CPAP AND DESAT TO 70'S. LATHA DANGELO PLACED PATIENT BACK ON VAPOTHERM.
--- NOTE | 2021-05-05 22:30 | NUR ---
PATIENT APPEARS TO BE SLEEPING SOUNDLY. RR 18. O2 SATS 92% ON VAPOTHERM 40L 100% Fi02.
--- NOTE | 2021-05-06 00:16 | NUR ---
PATIENT SLEEPING SOUNDLY. RR 15. O2 SATS 90% ON VAPOTHERM 40L 100% Fi02
--- NOTE | 2021-05-06 02:50 | NUR ---
PATIENT ASSISTED IN BLOWING HIS NOSE AND USING HIS NASAL SPRAY. PATIENT TOLERATING VAPOTHERM 40L 100% Fi02. O2 SAYS 94% AND RR 18.
--- NOTE | 2021-05-06 04:30 | NUR ---
PATIENT CONSISTENTLY DESATTING TO LOW 80'S. ENCOURAGED PATIENT TO LAY TO HIS SIDE AND KEEP VAPOTHERM IN PLACE WITH OXY MASK OVER. PATIENT IS NONCOMPLIANT. DISTRICT HOME ECONOMICS AGENT IN ROOM TO KEEP PATIENT ON SIDE MUCH POSSIBLE AND NC IN PLACE. PATIENT HAS IMPROVED O2 SATS AFTER ABOUT 20 MINS.
--- NOTE | 2021-05-06 06:54 | NUR ---
PATIENT ASSISTED TO BLOW HIS NOSE. O2 SATS 90% ON VAPOTHERM 40L 100% Fi02
--- NOTE | 2021-05-06 07:30 | NUR ---
RECEIVED REPORT AT 0700, PT IN ROOM AWAKE. PT WANTS BREAKFAST. NO NEW CONCERNS NOTED AT THIS TIME.
--- NOTE | 2021-05-06 09:00 | NUR ---
ALL LOBES CLEAR WITH BASES DIMINISHED AT THIS TIME. NO PERIPH. EDEMA NOTED. REDNESS ON ALL TOES PERSISTS. PT STILL ON VAPOTHERM 40L/100% WITH OXY MASK 15L.
--- NOTE | 2021-05-06 09:30 | NUR ---
RECEIVED REPORT AT 0700, PT IN ROOM AWAKE. PT WANTS BREAKFAST. NO NEW CONCERNS NOTED AT THIS TIME.
--- NOTE | 2021-05-06 09:30 | NUR ---
PATIENT HAS BEEN ANXIOUSLY WAITING FOR HIS DAUGHTER TO VISIT, HE HAS NOT HEARD FROM HER THIS MORNING, SO THIS RADIOGRAPHER CARDIAC CATHETERIZATION CALLED THE DAUGHTER AND LEFT MESSAGE ON VOICEMAIL. PATIENT NOTIFIED.
--- NOTE | 2021-05-06 11:00 | NUR ---
PT WAS SAT IN CHAIR AND LEANED OVER THE BED. PT AT THAT TIME WAS ONLY USING THE VAPOTHERM MODALITY. OXY MASK WAS NOT NEEDED. HOWEVER, AFTER ABOUT 10 MINUTES OR SO, PT INSISTED TO GO BACK TO BED. PT AT THIS TIME ALSO REFUSES TO PRONE COMPLETLY AND JUST DEMANDS TO LAY IN BED ON HIS BACK. PT NOW ONCE AGAIN NEEDS THE OXY MASK ON 15L O2 IN ORDER TO KEEP HIS O2 SATS >90%.
--- NOTE | 2021-05-06 12:02 | NUR ---
No change in CM plan at this time.
--- NOTE | 2021-05-06 12:30 | NUR ---
UPPER LOBES ARE CLEAR, LOWER LOBES HAVE CRACKLES PRESENT. O2 NEEDS ARE UNCHANGED. NO NEW CONCERNS WERE NOTED WITH SECOND ASSESSMENT. PT IS STILL REFUSEING C-PAP AND PRONING. WILL CONTINUE TO MONITOR.
--- NOTE | 2021-05-06 13:48 | NUR ---
THIS SAND MILL OPERATOR CORE SAND ANSWERED CALL LIGHT, PATIENT SBA TO BSC FOR BM. LINEN CHANGED, PATIENT NOW UP IN RECLINER, LEGS ELEVATED. CALL LIGHT AND PERSONAL ITEM INEASY REACH.
--- NOTE | 2021-05-06 14:00 | NUR ---
PT UP IN CHAIR. NO NEW CONCERNS NOTED AT THIS TIME.
--- NOTE | 2021-05-06 15:00 | NUR ---
DAUGHTER IN ROOM. PT UP IN CHAIR.
--- NOTE | 2021-05-06 16:30 | NUR ---
PT IN ROOM. DAUGHTER JUST LEFT. PT OVERALL SEEMS HAPPIER NOW THAT HE HAD A VISITOR. RLL HAS SOME CRACKLES, OTHER LOBES ARE CLEAR. NO NEW CONCERNS NOTED AT THIS TIME.
--- NOTE | 2021-05-06 17:51 | NUR ---
pt sitting up in chair eating dinner. pt states that he would like to get back to bed after dinner. pt is on vapotherm 40/100% and sats are 92% while eating. pt is alert and oriented to baseline, cooperative.
--- NOTE | 2021-05-06 18:30 | NUR ---
PT BACK IN BED. PT ON HIS BACK. NO NEW CONCERNS NOTED AT THIS TIME.
--- NOTE | 2021-05-06 18:33 | NUR ---
Patient is periodically drinking coffee. It was encouraged to put his mask back on after a few sips so his oxygen doesn't drop too low.
--- NOTE | 2021-05-06 19:54 | NUR ---
TOOK REPORT ON PT. PT IN ROOM IN BED. RT IN ROOM. BED RAILS IN UP POSITION. CALL LIGHT IN REACH. PT DENIES NEEDS AT THIS TIME.
--- NOTE | 2021-05-06 23:06 | NUR ---
PT IN ROOM SLEEPING. O2 MOVED TO 15L OXY MASK OVER VAPOTHERM 40L 100% CURRENT SAO2 95% RT AWARE. BED RAILS IN UP POSITION. CALL LIGHT IN REACH.
--- NOTE | 2021-05-07 01:02 | NUR ---
RT REMOVES OXY MASK OVER TOP OF VAPOTHERM. PT SAO2 94% WITH VAPOTHERM 40L 100% PT SLEEPING.
--- NOTE | 2021-05-07 03:41 | NUR ---
PT SAO2 DECRESED TO 84% ON VAPOTHERM 40L 100% OXY MASK USED AT 15L AND WERE NOT ABLE TO INCREASE SAO2. NON REBREATHER USED OVER TOP OF VAPOTHERM CURRENTLY. SAO2 94% RT MADE AWARE. PT MOVED TO SIDE LAYING POSITION.
--- NOTE | 2021-05-07 06:49 | NUR ---
PT AGAIN REQUIRING NON-REBREATHER SET AT 15L OVER TOP OF VAPOTHERM SET AT 40 100% RT AWARE.
--- NOTE | 2021-05-07 07:30 | NUR ---
RECEIVED REPORT AT 0700, PT WAS RESTING IN BED. NO NEW CONCERNS NOTED.
--- NOTE | 2021-05-07 09:00 | NUR ---
ALL LOBES ARE DIMINISHED AT THIS TIME. LOWER LOBES ARE ALSO TIGHT. PT AT THIS TIME IS SITTING UP IN CHAIR ONLY NEEDING VAPOTHERM 40L/ 100%. ABD SOUNDS PRESENT, V/S WDL, NO PERIPH. EDEMA NOTED. PT HAS NO NEW COMPLAINTS AT THIST TIME.
--- NOTE | 2021-05-07 11:22 | NUR ---
PT IN ROOM IN CHAIR. NO NEW CONCERNS NOTED AT THIS TIME.
--- NOTE | 2021-05-07 12:00 | NUR ---
NO NEW CONCERNS WERE NOTED WITH SECOND ASSESSMENT. IT WAS UNCHANGED OVERALL. PT WAS SITTING IN CHAIR UNTIL NOW. PT WISHED TO GO BACK TO BED. PT IS LAYING ON HIS LEFT SIDE AND O2 SATS >90% ON VAPOTHERM. URINE OUTPUT IS WDL. WILL CONTINIUE TO MONITOR. DAUGHTER WAS CALLED UPON PT REQUEST AND BRASS BUFFER LEFT A MESSAGE.
--- NOTE | 2021-05-07 13:30 | NUR ---
PT IN ROOM RESTING. NO NEW CONCERNS NOTED.
--- NOTE | 2021-05-07 14:54 | NUR ---
DAUGHTER NITA IN ROOM NOW. MD ASTUDILLO WAS CALLED SINCE DAUGHTER WOULD LIKE TO TALK TO HER.
--- NOTE | 2021-05-07 16:00 | NUR ---
ALL LOBES HAVE WHEEZING PRESENT AT THIS TIME. OTHERWISE NO NEW CONCERNS HAVE BEEN NOTED. V/S WDL, PT NOW BACK IN BED ON HIS LEFT SIDE. UNCHANGED O2 NEEDS SO FAR.
--- NOTE | 2021-05-07 17:59 | NUR ---
PT NOW SITTING ON SIDE OF BED EATING DINNER. NO NEW CONCERNS NOTED AT THIS TIME.
--- NOTE | 2021-05-07 20:30 | NUR ---
PT ASSISTED TO BEDSIDE COMMODE. NO OUTPUT AT THIS TIME. PT THEN RETUNED TO BED. DENIES NEEDS AT THIS TIME.
--- NOTE | 2021-05-08 02:25 | NUR ---
PT UNABLE TO SAO2 GREATER THAN 84% ON VAPOTHERM 40 100, WITH NON REBREATHER OVER TOP. PT PLACED ONTO CPAP. RT CALLED.
--- NOTE | 2021-05-08 02:38 | NUR ---
PT PLACED ON C-PAP BY RT.
--- NOTE | 2021-05-08 04:44 | NUR ---
PT SELF REMOVES C-PAP MULTIPLE TIMES AND ASKES FOR A CHANGE IN O2 DELIVERY. EDUCATION PROVIDED.
--- NOTE | 2021-05-08 08:00 | NUR ---
ALL LOBES ARE CLEAR WITH BASES DIMINISHED. ABD SOUNDS PRESENT, PT NOW UP IN CHAIR. O2 NEEDS UNCHANGED. NO PERIPH. EDEMA NOTED. NO NEW CONCERNS NOTED OVERALL. WILL CONTINIUE TO MONITOR.
--- NOTE | 2021-05-08 10:00 | NUR ---
PT SITTING IN CHAIR. NO NEW CONCERNS NOTED AT THIS TIME.
--- NOTE | 2021-05-08 12:15 | NUR ---
LOWER LOBES NOW HAVE SOME CRACKLES PRESENT. UPPER LOBES CLEAR. PT NOW ONLY ON VAPOTHERM AT 40L/80% WITH O2 SATS AT OR ABOVE 90%. NO NEW CONCERNS NOTED AT THIS TIME.
--- NOTE | 2021-05-08 14:17 | NUR ---
PT IN BED RESTING. VAPOTHERM ON 40L/100% FOR NOW.
--- NOTE | 2021-05-08 16:00 | NUR ---
PT NOW BACK UP IN CHAIR. WHILE IN BED PT O2 SATS DROPPED AND STAYED IN THE MID 80'S AND WOULD NOT COME UP. SITTING IN THE CHAIR NOW, PT NOW IS ONLY AGAIN ON VAPOTHERM AT 40L/ 80%. UPPER LOBES CLEAR, LOWER LOBES DIMINISHED. NO NEW CONCENRS WERE NOTED.
--- NOTE | 2021-05-08 18:00 | NUR ---
PT IS SITTING IN CHAIR WITH VAPOTHERM AT 40L/100% AT THIS TIME. NO NEW CONCERNS WERE NOTED. PT HAS REFUSED C-PAP ALL DAY ONCE MORE. OVERALL THOUGH PT SEEMS A BIT STRONGER TODAY AND HIS O2 NEEDS AT TIMES WERE LESS WHEN HE WAS SITTING UP.
--- NOTE | 2021-05-08 19:30 | NUR ---
REPORT RECEIVED FROM RELL DANGELO. PT UP IN CHAIR, REQUESTING HS MEDS AND WANTS TO GO TO SLEEP.
--- NOTE | 2021-05-08 20:00 | NUR ---
IN TO DO ASSESMENT AND VS, ASSISTED WITH TAKING MEDS, REMOVED CPAP AND PLACED PT ON VAPOTHERM 40/100 AND NRB 15+L. PTS SATS WENT TO 69 AFTER BRIEF TIME OFF CPAP. RT CALED IN, PT BACK ON CPAP AND TOOK APPROX 30 MINUTES TO RECOVER. ASSISTED WITH GETING ON LEFT SIDE POSITION, CALL LIGHT IN HAND.
--- NOTE | 2021-05-08 21:00 | NUR ---
IN TO DO HS MEDS, PT ASSISTED BACK TO BED. QUICK BED BATH GIVEN DESPITE PT PROTEST. GATES CARE DONE. PT GIVEN SEROQUEL WITH MEDS, AND HE IS READY TO TRY TO SLEEP.
--- NOTE | 2021-05-09 | NUR ---
PT CONTINUES TO REST AND KEEP OXYGEN ON. WILL DEFER FULL ASSESSMENT TO ALLOW PT TO SLEEP. RESP EVEN AND UNLABORED WITH PT ON VAPOTHERM.
--- NOTE | 2021-05-09 00:10 | NUR ---
ASSESMENT AND VS DONE. PT REMAINS UP ON LEFT SIDE, ASKS FOR HELP WITH REPOSITONING. LUNGS WITH FEW COARSE CRACKLES IN BASES. DENIES FURTHER NEDS.
--- NOTE | 2021-05-09 02:28 | NUR ---
PT CALLS TO ASK FOR HELP ADJUSTING CPAP MASK. STATES HE HAS NOT SLEPT THE LAST COUPLE OF HOURS, ASSISTED WITH REPOSITIONING IN BED. SPO2 HAS NESTOR 97-98% ON CPAP, FIO2 TURNED DOWN TO 90%.
--- NOTE | 2021-05-09 03:34 | NUR ---
PT REMAINS SLEEPING ON CPAP, SPO2 90%
--- NOTE | 2021-05-09 05:07 | NUR ---
PT CALLS TO STATE "I NEED TO PEE". REMINDED HIM HE HAS A CATHETER AND HE STATES "OH YEAH", DENIES FEELING URGE TO VOID. ASSESSMENT DONE. REMAINS IN BED, BED ALARM ON.
--- NOTE | 2021-05-09 06:30 | NUR ---
PT HAS BEEN AWAKE IN BED, WATCHING TV. HAS OVERALL HAD A MORE RESTFUL NIGHT AND HAS NOT BEEN RESTLESS. SPENT THE NIGHT ON THE VAPOTHERM 40/100%.
--- NOTE | 2021-05-09 07:36 | NUR ---
REPORT RECEIVED FROM NIGHTSHIFT RN, WILL CONTINUE PLAN OF CARE.
--- NOTE | 2021-05-09 09:05 | NUR ---
THIS RN IN TO ASSESS PT AND ADMINISTER SCHEDULED MEDICATION. PT SITTING IN BEDSIDE RECLINER AWAKE AND ALERT, PT ORIENTED TO SELF BUT STILL ANSWERS SOME QUESTIONS INNAPROPRIATELY. PT DENIES SHORTNESS OF BREATH AT THIS TIME AND REPORTS GENERALIZED PAIN AND HAS SOME COUGHING. PT VITALS TAKEN, SCHEDULED MEDICATIONS ADMINISTERED ALONG WITH PRN TYLENOL AND COUGH MEDICATION (SEE MAR). PT DENIES ANY NEEDS AT THIS TIME WHEN ASKED AND IS NOW EATING HIS BREAKFAST WHILE SITTING UP ON THE BEDSIDE RECLINER. VAPOTHERM IN PLACE STILL AT 40LPM AND 100% FIO2, SPO2 90% AT THIS TIME. PT ASSESSED (SEE CHART). PT REPORTS NO FURTHER NEEDS AFTERWARDS WHEN ASKED AND IS NOW RECLINED ON THE CHAIR, CALL LIGHT ON CHAIR WITHIN REACH, VAPOTHERM ON, SPO2 93%, WILL CONTINUE PLAN OF CARE.
--- NOTE | 2021-05-09 10:15 | NUR ---
RESPONDED TO PT CALL LIGHT. PT SITTING ON THE RECLINER AWAKE AND ALERT, VAPOTHERM IN PLACE AT PREVIOUS SETTINGS, SPO2 90-93%. PT STATES HE WOULD LIKE TO BACK TO THE BED. DR ASTUDILLO IN AFTER ENTERING THE ROOM TO ASSESS PT AND UPDATE ON PLAN OF CARE. PT THEN TRANSFERRED OVER TO THE BED, PT ABLE TO STAND, TURN, AND SIT IN BED, SPO2 NOTED TO DROP TO 85% WHILE ON THE VAPOTHERM BUT RECOVERED QUICKLY. PT NOW LAYING ON HIS LEFT SIDE IN BED, SPO2 90-94%. PT REPORTS NO FURTHER NEEDS AT THIS TIME WHEN ASKED, WILL CONTINUE PLAN OF CARE. CALL LIGHT IN REACH, BED IN LOWEST POSITION.
--- NOTE | 2021-05-09 12:10 | NUR ---
THIS RN IN TO ASSESS PT. RN BETHANY IN ROOM TAKING VITALS AT THIS TIME. PT LAYING IN BED AWAKE AND ALERT ON THE VAPOTHERM AT PREVIOUS SETTINS, SPO2 89-90%. PT DENIES HAVING PAIN OR SHORTNESS OF BREATH WHEN ASKED. PT ASSESSED AT THIS TIME (SEE CHART). PT REPORTS NO FURTHER NEEDS AFTERWARDS WHEN ASKED AND IS STILL RESTING IN BED. CALL LIGHT IN REACH, BED IN LOWEST POSITION, WILL CONTINUE PLAN OF CARE.
--- NOTE | 2021-05-09 13:00 | NUR ---
RESPONDED TO PT CALL LIGHT, PT STATED HE WANTED ANOTHER SODA. SODA BROUGHT TO PT AT THIS TIME. PT IN RECLINER AT THIS TIME ON THE VAPOTHERM AT 40LPM 100% FIO2. PT REPORTS NO FURTHER NEEDS WHEN ASKED. WILL CONTINUE PLAN OF CARE. CALL LIGHT IN REACH, VAPOTHERM ON, SPO2 90%.
--- NOTE | 2021-05-09 14:48 | NUR ---
PT ON THE RECLINER AT THIS TIME, VAPOTHERM AT PREVIOUS SETTINGS. PT DENIES HAVING ANY NEEDS AT THIS TIME WHEN ASKED, WILL CONTINUE PLAN OF CARE. CALL LIGHT IN REACH.
--- NOTE | 2021-05-09 15:05 | NUR ---
BOTH NARES SWABBED FOR COVID-19 WITHOUT COMPLICATION. SAMPLE TAKEN TO LAB.
--- NOTE | 2021-05-09 15:45 | NUR ---
Update from RN. Pt better today, only using vapotherm. Will move to the floor.
--- NOTE | 2021-05-09 15:48 | NUR ---
THIS RN IN TO ASSESS PT, PT SITTING ON THE RECLINER AT THIS TIME ON THE VAPOTHERM AT 40LPM 100% FIO2. PT DENIES HAVING ANY PAIN OR SHORTNESS OF BREATH AT THIS TIME, SPO2 94%. PT ASSESSED AT THIS TIME AND VITALS TAKEN (SEE CHART). PT THEN PROVIDED WITH ICE WATER. NO FURTHER NEEDS REPORTED AFTERWARDS, PT STILL ON THE RECLINER, CALL LIGHT IN REACH, VAPOTHERM ON, SPO2 NOW 97%, WILL CONTINUE PLAN OF CARE.
--- NOTE | 2021-05-09 16:23 | NUR ---
PATIENT'S DAUGHTER CALLED AND UPDATED THAT HE WAS MOVING TO ROOM [address] [facility]. PT'S DAUGHTER STATES THAT SHE WILL BE ABLE TO COME BACK TO VISIT HER DAD TOMORROW SOMETIME BEFORE NOON. PT NOW ON TELE #8.
--- NOTE | 2021-05-09 16:33 | NUR ---
THIS RN IN TO TRANSFER PT TO THE MEDICAL SURGICAL FLOOR ROOM 113. PT CONNECTED TO TELEMETRY FOR PORTABLE SPO2 MONITORING AND TRANSFERRED TO ROOM 113 ON 15L NONREBREATHER. RT IN ROOM 113 SETTING UP VAPOTHERM, PT PLACED ON VAPOTHERM ONCE IN ROOM 113. LORETO SWARTZ IN TO RESUME PLAN OF CARE. BEDSIDE REPORT GIVEN TO LORETO SWARTZ AFTERWARDS TO CONTINUE PLAN OF CARE. PT NOW IN ROOM 113, ON THE RECLINER, SPO2 93% ON THE VAPOTHERM AT 40LPM, 100% FIO2.
--- NOTE | 2021-05-09 17:01 | NUR ---
PATIENT ARRIVED TO MED SURG AT 1620. REPORT FROM TIFFANIE, FURNACE HELPER, RECEIVED SHORTLY THERAFTER. PATIENT IS SITTING UP IN CHAIR, VAPOTHERM IS ON AT 40/100. PATIENT DENIES PAIN OR NAUSEA AT THIS TIME.
--- NOTE | 2021-05-09 17:13 | NUR ---
PATIENT ASSESSMENT DONE. PATIENT IS UP TO CHAIR AND DENIES NEEDS AT THIS TIME. PATIENT HAS VAPOTHERM ON WITH SETTINGS OF 40/100. TELE #8 IS ON WITH PULSE OXIMITRY ONLY.VSS
--- NOTE | 2021-05-09 18:09 | NUR ---
PATIENT TRANSFERRED FROM CHAIR TO BED WITH ONE PERSON ASSIST. PATIENT NEEDED SOME ASSISTANCE TO GET FEET UP ON BED.
--- NOTE | 2021-05-09 19:42 | NUR ---
REPORT RECEIVED FROM DAY SHIFT RN. PT LYING IN BED RESTING WITH EYES CLOSED. NO APPARENT DISTRESS. CALL LIGHT IN REACH. BED ALARM FOR SAFETY.
--- NOTE | 2021-05-09 21:25 | NUR ---
EVENING ASSESSMENT COMPLETE. SCHEDULED MEDS ADMINISTERED PER EMAR. PRN FOR COUGH ADMINISTERED PER PT REQUEST. PT DENIES SOB. RESPIRATIONS EVEN. VAPOTHERM IN PLACE AT 40L/100% FiO2. GATES PATENT WITH CONCENTRATED URINE. ENCOURAGED PO INTAKE. ASSISTED TO REPOSITION IN BED. EXTRA BLANKETS PROVIDED. BED ALARM FOR SAFETY. NO FURTHER NEEDS AT THIS TIME. CALL LIGHT IN REACH.
--- NOTE | 2021-05-09 23:55 | NUR ---
SpO2 85-90% WITH VAPOTHERM IN PLACE. IN ROOM TO REPOSITION PT TO LEFT SIDE. SpO2 DID NOT IMPROVE. 15L/NRB PLACED. SpO2 88-92% AT THIS TIME. RESPIRATIONS EVEN.
--- NOTE | 2021-05-10 01:52 | NUR ---
CALL LIGHT ANSWERED. PT STATES "I NEED OXYGEN". VAPOTHERM AND NON REBREATHER MASK IN PLACE. SpO2 >90% RESPIRATIONS UNLABORED. REMINDED PT OXYGEN IS IN PLACE. IN ROOM TO REPOSITION WITH 2PA. HOB ELEVATED. PT REPORTS HE IS COMFORTABLE. DENIES SOB. BED ALARM FOR SAFETY. CALL LIGHT IN REACH.
--- NOTE | 2021-05-10 04:07 | NUR ---
PT RESTING WITH EYES CLOSED. VAPOTHERM AND NRB IN PLACE AT PREVIOUS SETTINGS. SpO2 92%. RESPIRATIONS EVEN.
--- NOTE | 2021-05-10 05:37 | NUR ---
VS AND I&O COMPLETE. SpO2 94% WITH VAPOTHERM 40L/100% FiO2 AND 15L/NRB MASK IN PLACE. PRODUCTIVE COUGH WITH BROWN SPUTUM NOTED. PT DENIES SOB. RESPIRATIONS EVEN. GATES PATENT WITH YELLOW URINE. PT REPORTS PAIN BEHIND LEFT EAR FROM CANNULA, NO OPEN AREA NOTED. FOAM APPLIED TO CANNULA FOR COMFORT. ASSISTED PT TO REPOSITION IN BED. DENIES FURTHER NEEDS. BED ALARM FOR SAFETY. CALL LIGHT IN REACH.
--- NOTE | 2021-05-10 07:22 | NUR ---
this rn received report from [facility]. pt appears to be resting and is cpox sating at 95% on maxed out vapotherm and nonrebreather.
--- NOTE | 2021-05-10 08:20 | NUR ---
PT CALLED THIS RN IN PTS ROOM AROUND 0750 THIS RN ASSISTED PT ONTO THE BEDPAN. PT HAD A LARGE BOWEL MOVEMENT. PT STATES THAT HE WANTS A COKE- THIS RN DISCUSSED WITH HIM THAT WE DON'T HAVE THAT PRODUCT. PT WAVED THIS RN AWAY.
--- NOTE | 2021-05-10 12:05 | NUR ---
this rn in pts room to bring pt his meal. this rn provided pt with more tissues due to pt coughing up thick small saravia colored sputum at this time. pt states that he needs nothing further at this time.
--- NOTE | 2021-05-10 14:40 | NUR ---
PT VISITING IN ROOM WITH DAUGHTER. PT MUNCHING ON CHOCLATE. CALL LIGHT WITHIN REACH, NO FURTHER NEEDS AT THIS TIME. LORETO SOLORZANO NOTIFIED AND AWARE OF PT'S VERY LITTLE OUTPUT.
--- NOTE | 2021-05-10 15:00 | NUR ---
update from RN, no change for today.
--- NOTE | 2021-05-10 15:10 | NUR ---
PT TOOK OFF OXYGEN TO BLOW NOSE- PT DESATED TO 80% PTS DAUGHTER AT BEDSIDE AT THIS TIME
--- NOTE | 2021-05-10 17:17 | NUR ---
THIS RN DID BLADDER SCAN PT, EVEN THOUGH PT HAD VOIDED. PER BLADDER SCANNER PT HAD 291 ML, PT STATES THAT HE DOES NOT FEEL THE NEED TO VOID AT THIS TIME
--- NOTE | 2021-05-10 18:04 | NUR ---
PT IS RESTING IN BED WATCHING TV AND EATING. CALL LIGHT IN REACH. NO FURTHER NEEDS AT THIS TIME.
--- NOTE | 2021-05-10 19:09 | NUR ---
PT AWAKE IN BED. PT HAS NOT VOIDED AND DENIES AN URGE TO TRY THE URINAL. ORAL CARE SUPPLIES SET UP FOR PT. CALL LIGHT WITHIN REACH. NO FURTHER NEEDS AT THIS TIME.
--- NOTE | 2021-05-10 19:13 | NUR ---
PT REFUSES ORAL CARE. NEW CALL LIGHT LIGHT PROVIDED, THE OLD ON HAD NO SOUND COMING OUT. CALL LIGHT IS WITHIN REACH. FRESH ICE WATER GIVEN. LORETO OBANDO NOTIFIED NO URINE OUTPUT. NO FURTHER NEEDS AT THIS TIME
--- NOTE | 2021-05-10 19:34 | NUR ---
REPORT RECEIVED FROM DAY SHIFT RN. PT LYING IN BED. MUSIC COPYIST IN ROOM FOR ASSIST WITH TV. WHITE BOARD UPDATED. CALL LIGHT IN REACH. BED ALARM FOR SAFETY.
--- NOTE | 2021-05-10 21:30 | NUR ---
EVENING ASSESSMENT COMPLETE. SCHEDULED MEDS ADMINISTERED PER EMAR. PRN FOR COUGH/SLEEP/PAIN ADMINISTERED PER PT REQUEST. SpO2 MID 80'S WITH VAPOTHERM 40L/100% FiO2 IN PLACE. 15L/NRB PLACED. SATS UP TO LOW 90'S. PT DENIES SOB. RESPIRATIONS EVEN. DENIES THE NEED TO VOID. ASSISTED TO REPOSITION TO LEFT WITH WITH PILLOWS WITH 2PA. NO FURTHER NEEDS. BED ALARM FOR SAFETY. CALL LIGHT IN REACH.
--- NOTE | 2021-05-10 22:45 | NUR ---
CALL LIGHT ANSWERED. PT REPORTS NEEDS TO VOID. IN ROOM TO ASSIST WITH URINAL. PT UNABLE TO VOID IN BED. ASSISTED TO STAND AT BEDSIDE. PT WITH POOR ACTIVITY TOLERANCE AND WAS NOT ABLE TO STAND LONG OR VOID. PT SITTING ON SIDE OF BED TO ATTEMPT WITH NO LUCK. AFTER SEVERAL FAILED ATTEMPTS PT BACK TO BED. SpO2 DOWN TO LOW 80'S WITH VAPOTHERM IN PLACE. BLADDER SCANNED FOR [address] LOPEZ NOTIFIED. NO NEW ORDERS RECEIVED. PT REPOSITIONED IN BED WITH BRIEF IN PLACE. 15L/NRB BACK ON. SpO2 LOW 90'S.
--- NOTE | 2021-05-11 00:36 | NUR ---
PT RESTING IN BED WITH EYES CLOSED. NO APPARENT DISTRESS. SpO2 93% WITH VAPOTHERM AND NRB IN PLACE.
--- NOTE | 2021-05-11 02:23 | NUR ---
PT RESTING IN BED WITH EYES CLOSED. RESPIRATIONS EVEN. SpO2 90% WITH VAPOTHERM AND NRB IN PLACE.
--- NOTE | 2021-05-11 03:13 | NUR ---
CALL LIGHT ANSWERED. PT AWAKE REQUESTING SOMETHING TO DRINK AND EAT. FRESH WATER AND JELLO PROVIDED. PT ABLE TO REPOSITION SELF IN BED. HOB ELEVATED. SATS DOWN TO MID 80'S WHILE EATING WITH VAPOTHERM IN PLACE. AFTER EATING 15L/NRB PLACED. SATS LOW 90'S. PT DENIES PAIN. DOES NOT NEED TO VOID AT THIS TIME. DENIES FURTHER NEEDS. CALL LIGHT IN REACH.
--- NOTE | 2021-05-11 06:54 | NUR ---
PT STILL UNABLE TO VOID. UP TO SIDE OF BED AND BSC TO ATTEMPT TO VOID. UNSUCCESSFUL. PT HAD MEDIUM SOFT BM ON BSC. PT NOT ABLE TO TOLERATE ACTIVITY WELL. SATS DOWN TO 70'S WITH NRB AND VAPOTHERM IN PLACE. RESPIRATIONS LABORED. PT IN BED AT THIS TIME. BLADDER SCANNED FOR >740 ML. AT REST SpO2 BACK TO LOW 90'S.
--- NOTE | 2021-05-11 07:11 | NUR ---
DR. LOPEZ NOTIFIED REGARDING PT UNABLE TO VOID AND BLADDER SCAN >700. NEW TELEPHONE ORDERS RECEIVED. VERIFIED WITH READ BACK METHOD.
--- NOTE | 2021-05-11 07:27 | NUR ---
this rn received report from [facility]. pt appears to be resting at this time with respirations noted and cpox in place.
--- NOTE | 2021-05-11 08:20 | NUR ---
this rn in pts room to place a gary in pt. pt tolerated fine with some struggle to get past the prostate. 800ml of urine instantly out- dark robles in color. this rn provided pt with 500mg of tylenol for comfort after placing gary. pt was amazed at how much came out.
--- NOTE | 2021-05-11 08:30 | NUR ---
pt had coughing fit this am. pt took off oxygen and desatted to 67% while coughing. pt was able to recover within 10mins but this rn maxed pt out on nonrebreather and vapotherm while encouraging pt to focus on breathing- if pt did not focus on breathing then he would further desat after starting to improve in saturtation
--- NOTE | 2021-05-11 08:30 | NUR ---
ASSISTED NURSE JEANINE WHILE SHE PLACED GATES IN PATIENT. HE HAD A COUGHING FIT AND DESATED BUT NURSE JEANINE GOT HIS 02 BACK UP. PATIENT IS NOW SITTING UP IN BED AND DOES NOT NEED ANYTHING AT THIS TIME. CALL LIGHT IN REACH.
--- NOTE | 2021-05-11 09:31 | NUR ---
THIS RN IN PTS ROOM TO GIVE PT ANOTHER MED. PT DOESN'T HAVE MUCH TO SAY AT THIS TIME- PT WAVED THIS RN AWAY WHEN ASKED IF HE WANTS BREAKFAST- PT STATES "I ALREADY ATE"
--- NOTE | 2021-05-11 10:30 | NUR ---
Waved at pt through his door today as his curtain is open. He is watching TV with a NRB mask in place. Pt waves back. No plan for dc today.
--- NOTE | 2021-05-11 11:35 | NUR ---
THIS RN IN TPS ROOM TO [facility] ON PT. PT ASKING IF I CALLED HIS MOM- THIS RN ATTEMPTED TO REORIENT PT- THIS RN PLACED OXYGEN TUBES BACK IN PTS NARES
--- NOTE | 2021-05-11 13:36 | NUR ---
THIS RN IN PTS ROOM TO GET PTS VITALS, I&OS, DO ASSESSMENT AND GIVE MEDS. PT NOT ENGAGED IN CONVERSATION AND IF HE DOES DAY SOMETHING IT APPEARS TO BE MUMBLED. KELLEY FROM RT IN ROOM TO DO BREATHING TREATMENT. AFTER TREATMENT PT BACK ON VAPOTHERM AND NONREBREATHER.
--- NOTE | 2021-05-11 17:32 | NUR ---
THIS RN IN PTS ROOM TO GIVE PT MEDS. THIS RN PROVIDED PT WITH COUGH MEDS THAT PT W2AS REQUESTING. PT ALSO ASKED FOR THIS RN TO REARRANGE HIS SHEETS AND DRAW SHEET STATING "IT FFELS LIKE i HAVE A BURN UP MY ASS"- AFTER ASSISTING PT, PT STATED THAT HE FELT MUCH BETTER
--- NOTE | 2021-05-11 19:20 | NUR ---
SHIFT REPORT RECEIVED FROM LORETO SOLORZANO. PATIENT SITTING IN HIGH FOWLERS POSITION IN BED ON VAPOTHERM 40L/100% WITH 100% NRB MASK OVER THAT. O2 SATS=91% PATIENT HAS NO CURRENT CARE NEEDS. CALL LIGHT IS IN REACH.
--- NOTE | 2021-05-11 21:13 | NUR ---
IN TO GET VITALS, CATH CARE GATES EMPTIED, PT READY FOR PM MEDS, RN AWARE, WATER REFILLED, NO FURTHER NEEDS AT THIS TIME
--- NOTE | 2021-05-11 21:51 | NUR ---
PATIENT HAS C/O GENERALIZED MUSCLE ACHES 2/10 AND TYLENOL GIVEN. COUGH SYRUP GIVEN FOR COUGH AND OTHE PM MEDS GIVEN. PATIENT'S LUNG SOUND ARE CLEAR BUT DIM THROUGHOUT. PATIENT REMAINS ON VAPOTHERM 40L/100% FIO2 AND NRB AT 15L/MIN OVER THE VAPOTHERM. PATIENT HAD NO OTHER CARE NEEDS AT THIS TIME. CALL LIGHT IN REACH AND BED IN THE LOW POSITION.
--- NOTE | 2021-05-11 23:32 | NUR ---
PATIENT RESTING QUIETLY IN SEMI-FOWLERS POSITION, RESPIRATIONS ARE REGULAR AND EVEN, O2 SATS=94% ON VAPOTHERM 40L/100% FIO2. PATIENT DOES NOT CURRENTLY HAVE THE NRB MASK ON ALSO. PATIENT HAS NO CURRENT CARE NEEDS. CALL LIGHT IS IN REACH.
--- NOTE | 2021-05-12 01:30 | NUR ---
PATIENT KEEPS TAKING OFF HIS VAPOTHERM AND NRB MASK. PATIENT REDIRECTED AND EDUCATRED ON THE NEED TO KEEP HIS OXYGEN ON TO LIVE. UNSURE HOW MUCH INFORMATION PATIENT IS RETAINING AT THIS TIME. SATS DROP LOW 78% OFF O2. VAPOTHERM BACK ON AT 40L/FIO2 100% WITH NRB AT 15L/MIN ON OVER VAPOTHERM. CALL LIGHT IS IN REACH.
--- NOTE | 2021-05-12 02:10 | NUR ---
PATIENT'S O2 SAT 91% ON PREVIOUSLY CHART VAPOTHERM SETTINGS. PATIENT CURRENTLY HAS NRB OFF. PATIENT RESTING QUIETLY EYES CLOSED. CALL LIGHT IS IN REACH.
--- NOTE | 2021-05-12 02:30 | NUR ---
PT CALLED, STATED HE NEEDS THE O2 TANK OVER BY THE WALL MOVED CLOSER TO THE SIDE OF THE BED, TRIED TO EXPLAIN TO PT HE HAS O2 FROM THE WALL, PT ROSALBA HE NEEDS THE EXTRA O2, PT HAS NON REBREATHER IN HAND, HAD PT USE THAT, NO FURTHER NEEDS
--- NOTE | 2021-05-12 04:12 | NUR ---
PATIENT RESTING QUIETLY IN SEMI-FOWLERS POSITION, EYES CLOSED, RESPIRATIONS REGULAR AND EVEN, O2 SATS=92% ON VAPOTHERM 40L/FIO2 100%, PATIENT HAS HIS 15L/NRB MASK OFF AT THE MOMENT. PATIENT HAS NO CURRENT CARE NEEDS AND HIS CALL LIGHT IS IN REACH.
--- NOTE | 2021-05-12 06:03 | NUR ---
PATIENT UP TO THE BEDSIDE COMMODE 1PA. PATIENT HAD A MEDIUM LOOSE BM AND BACK TO BED. PATIENT HAD NO OTHER CARE NEEDS AT THIS TIME. HUMA SANCHEZ GIVEN. CALL LIGHT IS IN REACH.
--- NOTE | 2021-05-12 07:14 | NUR ---
SHIFT REPORT GIVEN TO LORETO SIMS. PATIENT RESTING QUIETLY IN BED ON HIS PREVIOUSLY CHARTED VAPOTHERM SETTINGS WITH O2 SAT=93%. PATIENT HAS NO CURRENT CARE NEEDS. CALL LIGHT IS IN REACH.
--- NOTE | 2021-05-12 08:35 | NUR ---
Discussed in [id number] meeting. request CM to start seeking placement. Pt remains unchanged at this time. We did discuss pt is on high flow 02 with a NRB mask and I don't believe any SNF will take him at this point.
--- NOTE | 2021-05-12 09:21 | NUR ---
Tylenol 500mg po admin for reports of 3/10 generalized pain.
--- NOTE | 2021-05-12 13:35 | NUR ---
THIS RECIVED REPORT FROM BETHANY DANGELO. THIS RN TO ASSUME CARE OF PT WITH KAVITHA DANGELO. DURING REPORT PT HAD REMOVED ALL OF HIS OXYGEN OFF AND DESATTED TO 61% ON ROOM AIR. KAVITHA DANGELO ABLE TO ASSIST PT TO PUT HIS OXYGEN BACK ON AND PLACE PADDING BEHIND HIS EARS DUE TO PAIN
--- NOTE | 2021-05-12 13:36 | NUR ---
Patient took oxygen off and oxygen saturation dropped to 60%, patient educated on the importance of keeping oxygen on and instructed to keep it on. on 40L 100% fio2 vapotherm 15L nonrebreather patient able to recover and now 90%
--- NOTE | 2021-05-12 14:00 | NUR ---
Spoke with [facility]. They will not take pts with covid and so close to their covid diagnosis. [facility] referred me to [facility] in [place] as they now have a covid unit. Called and spoke with intake and they do not have any beds available. They also states pt would need to be on 02 5L or less. They rarely take anyone on high flow. She did say it is case by case and we will need to call back next week.
--- NOTE | 2021-05-12 15:15 | NUR ---
patient daughter here to visit. patient continues to remove oxygen. patient and daughter educated on the importance of oxygen.
--- NOTE | 2021-05-12 16:15 | NUR ---
THIS RN IN PTS ROOM TO CHECK ON PT DUE TO SATS BEING 86% ON MAX VAPOTHERM AND NONREBREATHER. PTS DAUGHTER AT BEDISDE AT THIS TIME. THIS RN DISCUSSED WITH PTS DAUGHTER THAT PT ISN'T TOLERATING THE CPAP VERY WELL AND THIS HAD GREAT POTENTIAL TO NMAKE HIM BETTER. PT STATES "GODDAMNIT NO I DON'T WANT TO WEAR THAT THING" PT STATES HE MIGHT BE MORE WILLING TO TRY IN THE MORNING, BUT NOT WILLING TO TRY TONIGHT.
--- NOTE | 2021-05-12 17:15 | NUR ---
this rn in pts room to check on pt. pt fidgeting right hand but left side appears to be non mobile at this time. this rn repositioned pt at this time pt able to sigh relief for new comfortable position
--- NOTE | 2021-05-12 20:49 | NUR ---
on vapotherm 40L 100%, and NRB mask as blowby, desats to 79 with cough. back to 92% with NRB mask on, does not tolerated well, coop with assessment, cracvkles at bases. moist productive cough. medicated with cough syrup. tolerating liquids well, no emesis. medicated per c/o generalized pain and per insomnia. takes O2 nasal prongs off, repositioned. cooperative, slightly irritable mood but redirectable, repositoned in bed. on airborne isolation precautions in place. IS at bedside, f/c in place4, draining small amounts of medium yellow colored urine. cath care done and hs care done
--- NOTE | 2021-05-12 23:18 | NUR ---
IN TO ASSIST PT WITH BLANKETS, PT SEEMS TO BE CONTENT AND HAS NO FURTHER NEEDS
--- NOTE | 2021-05-12 23:30 | NUR ---
PT CALLING FOR A WARMBLANKET FOR LEGS, EPLAINED TO PT ABOUT NEEDING TO GROUP CARES/NEEDS TOGETHER TO MINIMIZE PPE WASTE AND EXPOSER TO STAFF, PT SEEMS TO UNDERSTAND BUT FORGETFUL AT TIMES, PT WANTING TO GET COFFEE, PT AWARE OF TIME, NO FURTHER NEEDS
--- NOTE | 2021-05-13 01:55 | NUR ---
PT NOTED TO BE DESATING VIA CENTRAL MONITOR, IN TO CHECK IF PT HAD NC AND NRBM OFF, IN TO INSTRUCT PT TO PUT BACK ON, O2 SATS RISING, NO FURTHER NEEDS
--- NOTE | 2021-05-13 02:07 | NUR ---
took o2 nasal prongs/O2 off, desatted to 63%, O2 40L/100% plus NRB as high as it goes. Instructed to try and keep it in place as its helping his lungs, stated ok, no sob noted. current sats as per cpox #8 is 92% with vapotherm and blowby NRB. repositioned to L side, cooperative, tolerating sips of fluids, coop wtih assessment, lungs fine crackles at bases dim ptherwise
--- NOTE | 2021-05-13 04:35 | NUR ---
medicated with tylenol per c/o knee pain and general pain. O2 vapotherm and NRB mask sats 88-93%. takes tubing off nares, repositioned, repositioned in bed. cooperative, fresh water and warm blanket given. hob elevated to comfort cough syrup w codeine given on requests. moist prod cough at this time
--- NOTE | 2021-05-13 07:30 | NUR ---
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
--- NOTE | 2021-05-13 10:00 | NUR ---
patient resting in bed comfortable,bed alarm on, call light within reach, denies any needs at the moment
--- NOTE | 2021-05-13 10:20 | NUR ---
DR LOPEZ NOTIFIED OF DECREASED URINE OUTPUT. NO NEW ORDERS AT THIS TIME.
--- NOTE | 2021-05-13 12:15 | NUR ---
rn to assist patient with hygeine , encourage personal hygiene, assited patient up to recliner. desated with activity to 60%, chest xray oreded by dr serrano post evalutation. ate a couple bites of lunch. denies any needs at the moment
--- NOTE | 2021-05-13 12:53 | NUR ---
PATIENT CONTINUES ON A REGULAR DIET WITH A FAIR APPETITE. HE IS ABLE TO EAT BY MOUTH USING 40 L VAPOTHERM. IS ON BARICITINIB THROUGH 05/16. NURSING STAFF ASSISTING IN GETTING HIS MEAL ORDERS WHICH IS MUCH APPRECIATED SINCE PATIENT IS COVID +. WILL CONTINUE TO MONITOR.
--- NOTE | 2021-05-13 13:00 | NUR ---
DR LOPEZ IN TO SEE PATIENT.
--- NOTE | 2021-05-13 15:30 | NUR ---
RN IN ROOM TO ASSESS PATIENT, PATIENT REMOVING OXYGEN AT TIMES EDUCATED TO LEAVE OXYGEN ON, REEMAINS ON CONTNOUS PULSE OXIMETER, RESTINING IN BED ENCOURAGED TO PRONE AND LAY SIDE TO SIDE
--- NOTE | 2021-05-13 16:40 | NUR ---
NO CHANGES FOR DISCHARGE PLAN AT THIS TIME. PATIENT STILL REQUIRING HIGH FLOW OXYGEN AND IS NOT READY FOR DISCHARGE.
--- NOTE | 2021-05-13 18:55 | NUR ---
patient continues to drop oxygen saturations, RT called to assess patient they recommend trying cpap tonight, patient wore for 15 mins open to try it later tonight. daughter in room with patient, oxygen curently 90% on 40L vapoerm and 15L nonrebreather. no concerns
--- NOTE | 2021-05-13 20:07 | NUR ---
irritable mood but coop, on vapotherm 40L 100%, NRB mask in place too, declines to use CPAP at this time. lungs with crackles t/o and dim at bases. moist productive cough present. medicated with cough syrup w codeine and tessalon perles. cpox in place, sats 88-92%, encourage to prone, does turns and repositions self in bed slightly, delines to go on his side at this time C/o leg and overall pain, warm blanket and medicated with Tylenol . uses call light, tolerating fluids well, no emesis. f/c patent small amounts of medium yellow urine. cath care done. sl x1 patent
--- NOTE | 2021-05-13 22:23 | NUR ---
cpox #[address], vapothern and blowby NRB mask 91%
--- NOTE | 2021-05-13 23:24 | NUR ---
CALL LIGHT ON, PT ASKED WHAT HIS NEEDS ARE, PT STATING I HAVE NO NEEDS, JUST CHECKING IN, SAYING LEEROY, REMINDED PT CALL LIGHT IS THERE IF PT NEEDS ASSISTANCE AND NOT FOR CHATTING, PT AGREEABLE AT THIS TIME,
--- NOTE | 2021-05-14 01:00 | NUR ---
takes O2 vapotherm tubing off, desatted to low 80's, back on it took a few minutes to recuperate, declines proning positioning , declines to go on the CPAP "I cant breathe with that thing on" pros explained, still declines. trazadone 100mg po given per insomnia as he has not slept this shift. has been on the call light wanting to talk to staff, blankets have been added and removed frequently at this requests. sats 89% at this time now with vapotherm and NRB mask on. Pt irritable but easily redirectable
--- NOTE | 2021-05-14 01:34 | NUR ---
TOOK BOTH VAPOTHERM AND nrb MASK OFF, DESATTED TO 67, BOTH BACK ON, SATS SLOWLY INCREASING TO88 AT THIS TIME
--- NOTE | 2021-05-14 02:00 | NUR ---
takes o2 nasal probes off nares and off his face or down to carlos. desats to high 70's, low 80's, vapotherm nasal prongs back on along with NRB mask sats 86-91%, drowsy, reminded to keep o2 tubing in nares, "it hurts my ears" stated, calm but irritable mood, declines to turn to side
--- NOTE | 2021-05-14 02:41 | NUR ---
dr serrano notified via phone about pt dessatting to high 60's when taking vapotherm tubing and NRB Mask off, taking his a little longer than normal to bring sats up to mid to high 80's once repositioned back. declines to prone, declining CPCP, asked several times by RT and RN. trazadone not effective and pt drowsy and fighting sleep. no new orders "continues to observe and call if worsening sats, increased sob air hunger, will assess in am"
--- NOTE | 2021-05-14 04:34 | NUR ---
on CPAP, sats 88%
--- NOTE | 2021-05-14 05:35 | NUR ---
took CPAP off, desatted to 79%, back on vapother 40L, 100% and NRB mask at 15L both on or by blow by as he takes it off, sats cpox#8 85-89%. moist cough present, cough syrup give, and tylenol per fgeneralized and back pain. very irritable mood, got very upset when this STACEY was instructing pt on to keep CPAP on as he had taken it off, "John done with it" stated, nopt receptive to teaching, declines to use IS, turned in bed, then he repositions self back to his back, hob elevated to comfort. f/c patent
--- NOTE | 2021-05-14 06:51 | NUR ---
HOB elevated, eyes closed, vapotherm and NRB mask on, sats 92%.
--- NOTE | 2021-05-14 07:26 | NUR ---
report recieved from [employer] checker nurse, patient resting in bed, continous pulse ox on, call light within reach denies any needs at the moment.
--- NOTE | 2021-05-14 07:55 | NUR ---
ASSISTED PATIENT TO ROLL OVER ONTO RIGHT SIDE, ALMOST PRONE POSITION. O2 SATURATION 87% WITH JUST USING THE VAPOTHERM AT 40L AND 100% FIO2. PLAN FOR THIS POSITION UNTIL BREAKFAST ARRIVES.
--- NOTE | 2021-05-14 09:45 | NUR ---
PATIENT UP IN CHAIR CALL LIGHT WITHIN REACH DENIES PAIN, MORNING MEDS GIVEN PRN COUGH SYRUP GIVEN.
--- NOTE | 2021-05-14 10:13 | NUR ---
DR LOPEZ IN TO SEE PATIENT. PATIENT LAYING IN CHAIR, SLEEPY. AWAKENS TO VOICE BUT GOES BACK TO SLEEP QUICKLY.
--- NOTE | 2021-05-14 12:30 | NUR ---
patient taken to CT with RT and Lebron RN, back in rrom and eating lunch hooked up to IV fluids post contrast, helped patient dial his daughters phone number.
--- NOTE | 2021-05-14 13:20 | NUR ---
WORKED WITH PATIENT TO TITRATE PRESSURE HE WAS NOT VERY HAPPY WITH THE CPAP MASK AT THIS TIME , LARGE LEAK WAS NOTED , MASK ADJUSTED SO THAT IT WOULD BE READY USE ON ALTO SINGER, PT PLACED ON
--- NOTE | 2021-05-14 15:17 | NUR ---
RN TO DO ASSSEMNT ON PATIENT UP IN CHAIR WACHTING TV, DENIES ANY PAIN AT THE MOMENT ON 40L VAPOTERM AND 15L NONREBREATHER, CONTINOUS PULSE OXIMETER , CALL LIGHT WITHIN REACH
--- NOTE | 2021-05-14 17:30 | NUR ---
THE NURSE AND I GAVE HIM A BED BATH.
--- NOTE | 2021-05-14 18:16 | NUR ---
PATIENT ASSISTED BACK TO BED WITH 2A, BEDBATH DONE, DOES NEED EXTRA TIME DUE TO LEUNG , DAUGHTER AT BEDSIDE GIVEN UPDATE ABOUT REPEAT CHEST CT, PATIENT REFUSED TO PRONE, SATS 89 ON 40L VAPOTHERM/ 15L NONREBREATHER, ENCOURAGE CPAP USE AT HS AND PRONING, BED ALARM RN FAMILY LIGHT WITHIN REACH.
--- NOTE | 2021-05-14 19:43 | NUR ---
CUONG, DROWSY, AWAKES EASILY, COOP WITH ASSESSMENT, CUONG, ON VAPOTHERM 40L/100%F1O2, LUNGS WITH WHEEZIBNG L LUNG, CRACKLE T/O AND DIM LEFT. MOIST PRODUCTIVE COUGH PRESENT. ALLEVYN DRESSING OVER EARS THEY ARE RED AND TENDER FROM O2 TUBING. F/C PATENT, DRAINING SMALL AMOUNTS DARK YELLOW URINE. OUTPUT JUST BELOW PAAMETERS DR LOPEZ AWARE FOR SEVERAL DAY. TAKES SIPS OF FLUIDS. CALL LIGHT AT HANDS REACH
--- NOTE | 2021-05-14 20:27 | NUR ---
pt hob elevated, takes vapotherm nasal prongs off, and took NRB mask off to drink pop, desatted to 70's. back in place, situation explained, repositioned, c/o being too tight. unfastened a little, took l prong off nare, back on, very irritable, NRB mask back on. sats 84-86%. medicated with tylenol 500mg po c/o back and leg pain, medicated with tessalon perles and cough syrup w codeine per moist productive cough. tRAZADONE 150MG PO GIVEN PER INSOMNIA, DECLINES TO BE PRONED. TURNED FROM LEFT TO RIGHT AND BACK TO BACK, RED BUTTOCKS, NOT RECEPTIVE TO INFORMATION. F/C PATENT, DRAINING SMALL AMOUNTS DARK YELLOW URINE. cONTINUES TO REINFORCE TO KEEP NASAL PRONGS ON AND TO PRONE. 'OK,OK,OK' STATES. LEGS ELEVATED,NO SOB WITH EXERTION NOTED AT THIS TIME
--- NOTE | 2021-05-14 20:48 | NUR ---
DR SCHRADER NOTIFIED OF PT MOVING NASAL PRONGS OFF NARE AND TAKING NRB MASK OFF SATS WERE 83% WHEN HE WAS ON THE FLOOR PT HAD TAKES MASK OFF TO DRINK POP. SATS WENT UP TO 85-87% WHILE TAKING TO MD. NO NEW ORDERS. CONT TO REINOFRCE TO KEEP O2 PRONGS ON AND NRB MASK ON.
--- NOTE | 2021-05-14 21:30 | NUR ---
SPO2 DROPPING TO UPPER 60'S ON RA, PRIMARY RN YOUNG NOTIFIED AND IN ROOM TO PUT pt BACK ON O2 THERPY, SPO2 NOW RETURNING AND SUSTAINING 88-89%.
--- NOTE | 2021-05-14 22:05 | NUR ---
tppl a;; p2 off, desatted to low 70'sm back on after several cues, cpox sats 85 after a few minutes, irritabkle mood, declines cpap
--- NOTE | 2021-05-14 22:28 | NUR ---
RESTING, EYS CLOSED, VAPOTHERM AND NRB MASK ON CPOX SATS 92%
--- NOTE | 2021-05-14 23:53 | NUR ---
Resting, eyes closed, no distress, cpox#8 sats 88%, on 40L/100 FIO2, NRB Mask blow by, hob elevated, continues on airborne isolation precautions. f/c patent
--- NOTE | 2021-05-15 01:53 | NUR ---
Resting, HOB elevated to comofrt, on Vapotherm 40L/100 FIO2 and NRB mask at 15L, resp 20, eyes closed, no distress, has been sleeping good, call light at hands reach. on Airborne isolation precautions, cpox#8 sats 90% P67
--- NOTE | 2021-05-15 03:56 | NUR ---
Resting, eyes closed, resp even, unlabored, cpox sats 88-91% on Vapotherm and NRBM, call light at hands reach, on airborne isolation precautions, f/c patent
--- NOTE | 2021-05-15 05:11 | NUR ---
Awake, took Vapotherm nasal prongs and NRB mask off, desatted to mid 70's. back on. irritable mood.Has slept from midnight to this tiime, sats were steady at 89-92% when sleeping. had received Trazadone last night, c/o tenderness behind ears from O2 tubing, continue to reinforce O2 requirements. Lungs were wheeze and crackles t/o at begining of shift. fine crackles at bases and dim at this time. cpox#[address], sats between 76-92%. currently 88% with vapotherm 40L and fIO2 100% and 15L NRB continues to decline to use CPAP. receive nebs. occassionl moist productive cough present, received cough syrup w codeine x1 at begining of shift. and Tylenol per generalized pain. hob elevated per comofrt, helps with turning and reposioning. trace edema to LE. SL patent. Has tolerated fluids well, continues to have poor appetite. call light at hands reach. turned to L side at this time,
--- NOTE | 2021-05-15 06:48 | NUR ---
RESTING, EYES CLOSED, NO DISTRESS, ON VAPOTHERM AND NRB MASK, CPOX SATS 89%
--- NOTE | 2021-05-15 10:07 | NUR ---
REPORT RECEIVED FROM NIGHT RN AND PT. CARE RESUMED. PT. IS ALERT AND ORIENTED TO SELF AND PLACE. HE HAD A LARGE, LOOSE BM ON BEDPAN. HE IS EATING BREAKFAST WELL. ON VAPOTHERM 40L, 100% WITH NRB MASK AT 15L OVER TOP AND O2 SAT. IS 91%. HE DENIES PAIN. ASSISTED WITH SELFCARE AND REPOSITIONING. DISCUSSED O2 USE, MEDS AND SAFETY. LEF RESTING WITH CALL LIGHT IN REACH.
--- NOTE | 2021-05-15 10:30 | NUR ---
PT VERY CHATTY. RN KENDRICK NOTIFIED OF LOW INTAKE AND OUTPUT. ATTEMPTED TO TIDY ROOM. PT DID NOT WANT THIER EMPTY FOOD CARTONS THROWN AWAY. CALL LIGHT WITHIN REACH NO FURTHER NEEDS AT THIS TIME.
--- NOTE | 2021-05-15 14:10 | NUR ---
THIS NURSE AND CHARGE ASSISTED PT. WITH CHANGING BEDDING AND ATTENDS AFTER LARGE, INCONTINENT, LOOSE BM. PT. CLEANED AND ASSISTED WITH REPOSITIONING. LEFT RESTING WITH CALL LIGHT IN REACH.
--- NOTE | 2021-05-15 14:45 | NUR ---
PT CURRENTLY DOING BREATHING TREATMENT AND WATCHING TV. RN KENDRICK NOTIFIED OF VERY LITTLE INTAKE AND OUTPUT, AND OF LOW BP. CALL LIGHT WITHIN REACH NO FURTHER NEEDS AT THIS TIME.
--- NOTE | 2021-05-15 15:26 | NUR ---
PARAMEDICAL AIDE REPORTS BP WAS IN THE 80'S SYSTOLIC. THIS NURSE CHECKED BP MANUALLY. BP WAS 118/61. LUNGS DIM. THROUGHOUT. IV SITES WNL. PT. LEFT RESTING WITH CALL LIGHT IN REACH.
--- NOTE | 2021-05-15 16:59 | NUR ---
PT. BROUGHT DINNER AND TELE BATTERY CHANGED. ASSISTED WITH SITTING UPRIGHT FOR DINNER. LEFT RESTING WITH ALARM ON AND CALL LIGHT IN REACH.
--- NOTE | 2021-05-15 18:57 | NUR ---
PT RESTING IN BED WATCHING FOOTBALL. COULD NOT GET O2 TO GO ABOVE 89 DURING VITALS. LORETO MARKS NOTIFIED. PT DID NOT EAT ANYTHING DURING DINNER. LORETO MARKS NOTIFIED. ROOM TIDIED. CALL LIGHT WITHIN REACH, NO FURTHER NEEDS AT THIS TIME.
--- NOTE | 2021-05-15 20:55 | NUR ---
MORE ALERT, COOP, SLIGHTLY IRRITABLE MOOD BUT REDIRECTABLE, FOLLOWING INSTRUCTIONS. ON VAPOTHERM 40L/100%FI02, LUNGS W FINE CRACKLES BASES, CLEAR UPPERS., CPOX#[address], 96%, NRB MASK OFF AND HAS NOT DESSATTED, COOPERATIVE, TURNED AND REPOSITONED WITH LITTLE ASSIST. HOB ELEVATED. CONT TO HAVE MOIST PRODUCTIVE COUGH OF VERY THICK WHITE/YELLOW PHLEGM. RECEIVED TESSALON PERLES AND COUGH SYRUP WITH CODEINE PER COUGH, TYLENOL PER H/A AND ABD PAIN. TOLERATING SIPS OF POP AND WATER. PUDING GIVEN ON REQUESTS. ENSURE AT BEDSIDE, DECLINES, CONT TO ENCOURAGE. ATTENDS INPLACE, F/C CARE DONE, DRAINING BELOW PARAMETERS DARK YELLOW URINE. MD AWARE. MOVES LEGS AND HELPED WITH TURNING. ON AIRBORNE ISOLATION. PT AWARE OF WE SHOULD TRY TO USE CPAP TONIGH WHEN HE GETS READY TO SLEEP. STATED OK. RT TO BE NOTIFIED.
--- NOTE | 2021-05-15 21:15 | NUR ---
sats 94% on vapotherm only, hob elevated
--- NOTE | 2021-05-15 22:11 | NUR ---
PATIENT CALLED AND ASKED FOR HELP. PATIENT HAD TAKEN CPAP OFF AND UNABLE TO PLACE OXYGEN BACK ON WITHOUT ASSISTANCE. PATIENTS VAPOTHERM PLACED BACK ON. NON-REBREATHER PLACED BACK ON TO ASSIST PATIENT TO RECOVER. PATIENT DENIES ANY FURTHER NEEDS. CALL LIGHT IN REACH.
--- NOTE | 2021-05-15 23:20 | NUR ---
SATS 79%, HAD TAKEN NASAL PRONG OFF, VAPOTHERM, REPOSITIONED, NRB MASK WAS ON SIDE, PLACED BACK ON BY PT. SATS 92% NOW. PRIOR TO THIS SATS PER CPOX#8 WERE 91% ON VAPOTHERM ONLY.
--- NOTE | 2021-05-15 23:32 | NUR ---
97% ON VAPOTHERM AND NRB MASK
--- NOTE | 2021-05-15 23:57 | NUR ---
ON VAPOTHERM ONLY, SATS 92%, TOLERATING FLUIDS, TAKING SIPS OF POP AND WATER. ANOTHER PUDING GIVEN, ATE 100%. DROWSY, RECEIVED TRAZADONE 150MG EARLIER ONTHE SHIFT.
--- NOTE | 2021-05-16 00:48 | NUR ---
resting, eyes closed, on vapotherm, placed NRB lask on himself, cpox#8 sats 93%. cont on airborne isolation precautions
--- NOTE | 2021-05-16 01:03 | NUR ---
takes mask and vapotherm nasal prongs off, desats to low 79%, back on, sats 85-88%, teaching reinforced, semi compliant, hob elevated, continues to decline CPCP
--- NOTE | 2021-05-16 02:47 | NUR ---
PT CALLED THAT HE NEEDED TO USE THE BATHROOM, HAD A LARGE LOOSE STOOL IN BEDPAN. SEMICOOP WITH TURNING. SKIN CARE. DESATTED TO 79 HE TOOK NRB AND O2 TUBING OFF. BACK ON, CPOX # 8 SATS 87% AT THIS TIME. HELPS WITH REPOSITIONING, DECLINES TO PRONE, DECLINES CPAP AGAIN. F/C PATENT, TOLERATING FLUIDS WELL. AWAKE OFF AND ON THIS SHIFT, CONTINUES ON ISOLATION PRECAUTIONS
--- NOTE | 2021-05-16 04:25 | NUR ---
took finger probe off and NRB mask, replaced, NRBM and vapotherm in place, sats 88%, helped with repositoning, tolerating sips of fluids, hob elevated. cont to reinforce need to keep O2 in place, "If you said so" stated. declines to prone, declines to use CPAP. cont to encourage, was helpul turning side to side. call light at [facility] reach.
--- NOTE | 2021-05-16 05:14 | NUR ---
PT TOOK FINGER PROBE OFF AND nrb MASK AND VAPOTHERM TUBING OFF NOSE,. vAPOTHERM 40L/100% FI02 BACK ON, FINGER PROBE CHANGED FROM FINGERS TO R 3RD TOE, WITH INMEDIATE 88-94% WITH JUT VAPOTHERM IN PLACE, AFTER 15 MINUTES 88-90% W PROBE STILL ON TOES, AND ON VAPOTHERM O2 ONLY, HOB ELEVATED, DROWSY. SIPS OF FLUIDS GIVEN, IRRITABLE BUT COOP. CONTINUES TO DECLINE TOP USE CPAP. LUNGS W/O CHANGES. CONTINUES TO DECLINE TO PRONE, TURNED TO L SIDE WITH PILLOW ON BACK, NOT VERY COOP. CONT TO [id number] PROCEDURES, SEMI COMPLIANT, UNABLE TO ASSESS DEGREE OF UNDERSTANDING AFTER EXPLAINING TO PT MULTIPLE TIMES DURING THIS SHIFT, COOP AT TIMES AND OTHERS FORGETFUL "I JUST WANT ALL OFF AND GO HOME" REASSURED, NO SOB WITH EXERTION WITH MOVEMENT/REPOSITIONING WITH ONLY VAPOTHERM ON NOTED PER CPOX. RESP 20, NO DISTRESS. F/C PATENT, DRAINING DARK YELLOW URINE.
--- NOTE | 2021-05-16 05:24 | NUR ---
pt awake most of this shift, received trazadone 150mg this shift, not effective, tessalon perles and cough syrup with codeine given per moist productive cough of white thick phlegm. pt able to expectorate phlegm. Continues on vapotherm 40L 100% FIO2, and ocassional NRB mask/15L. both of which he takes off very frequently and desats to 79 mostly and to 55% x1, takes O2 finger probe off multiple times, repositioned to R 3rd toe at this time, cpox #[address], sats 89% with only vapotherm on. Lungs clear upper and fine crackles and dim at bases. Pt declines to use CPAP, which he toleratedfor only 1/2 hr this shift, multiple requests, and continues to decline to use CPAP or to do prone positioning. large abd, had large very soft loose bm, skin cared one, f/c patent draining below call parameters for ht and wt, Drs Nasir aware, urine dark yellow. Takes sips of fluids and pop, poor appetite, puding given X2, tolerated well, HOB elevated, aspiration precautions in place. Pt call light and fluids at bedside. helps with turning and repositioning sometimes, irritable mood, easily redirectable. sl patent
--- NOTE | 2021-05-16 06:54 | NUR ---
cpox#8, sats 85-89% Vapotherm and NRB mask on, takes off. repositioned procedure explained, semi compliant
--- NOTE | 2021-05-16 07:04 | NUR ---
pt took vapotherm nasal prongs off an NRB, dessated to 68%, back on, turnded and repositoned, stated"OK ill prone if you want to", turned to L side, pillow between back, increaesd SOB with exertion notd this am compared to all my overnight babysitter today. sats now 87& with vapotherm and NRB at 10L. Continues to decline to use CPAP
--- NOTE | 2021-05-16 07:52 | NUR ---
Patient awake in bed, no distress. Patient removed his vapotherm and non rebreather mask. Vapotherm and non rebreather mask replaced, education provided to patient. Patient's oxygen dropped to 76% off the oxygen. Slow increase of oxygen sat level to 85% once oxygen on. Patient reports to mask and nc are painfult to wear. Patient repositioned at this time. No futher needs at this moment.
--- NOTE | 2021-05-16 08:45 | NUR ---
PATIENT RESTING IN BED. TOOK PATIENTS VITALS AND NURSE BETHANY RECORDED THEM AND I&OS. HE DOES NOT NEED ANYTHING AT THIS TIME. CALL LIGHT IN REACH.
--- NOTE | 2021-05-16 09:00 | NUR ---
Tessalon perles 100mg po and tylenol 500mg po for reports of cough abd body aches.
--- NOTE | 2021-05-16 11:01 | NUR ---
Daughter in visiting with patient at this time.
--- NOTE | 2021-05-16 14:27 | NUR ---
PATIENT HAS BEEN SLEEPING MOST OF THE DAY. NO CHANGES IN DISCHARGE PLAN. NOT READY FOR DISCHARGE AT THIS TIME.
--- NOTE | 2021-05-16 14:54 | NUR ---
Patient resting in bed, respirations even and non labored. Patient has no notable distress at this time. SP02 93% on vapotherm 40L/100% with non rebreather mask over vapotherm. Patient has no needs. Personal supplies and call light within reach.
--- NOTE | 2021-05-16 17:35 | NUR ---
Linens changed at this time. Dinner to patient. Patient continues on vapotherm 40L/100% with Non reabreather @15L. SP02 86%. Patient has no distress. Personal supplies within reach.
--- NOTE | 2021-05-16 18:14 | NUR ---
Encouraged patient to drink more water. Updated Dr. Best for urine output.
--- NOTE | 2021-05-16 19:41 | NUR ---
RECEIVED REPORT FROM DAY SHIFT RN. PATIENT IS RESTING IN BED. DAY SHIFT RN IS PRESENT IN THE ROOM. PATIENT DENIES ANY NEEDS. CALL LIGHT IN REACH.
--- NOTE | 2021-05-16 22:20 | NUR ---
PATIENT ASSESMENT COMPLETED. VITALS TAKEN AND RECORDED. INTAKE AND OUTPUT RECORDED. PATIENT GIVEN SCHEDULED MEDICATION PER ORDER. PATIENT GIVEN SLEP AID PER REQUEST AND ORDER. PATIENT GIVEN PRN COUGH MEDICATION PER PATIENT REQUESTA AND ORDER. PATIENT REMAINS ON MAX VAPOTHERM. PATIENT DENIES ANY SOB. PATIENT DENIES ANY FURTHER NEEDS. CALL LIGHT IN REACH. FRESH ICE WATER PROVIDED.
--- NOTE | 2021-05-17 00:36 | NUR ---
PATIENT ASSISTED WITH FIXING BLANKETS. PATIENT DENIES ANY FURTHER NEEDS. CALL LIGHT IN REACH.
--- NOTE | 2021-05-17 01:59 | NUR ---
PATIENT IS RESTING IN BED WITH EYES CLOSED. PATIENT APPEARS COMFORTABLE. PATIENT IS ON VAPOTHERM 40/100 AND OXYGEN SATURATION IS 90%. CALL LIGHT IN REACH.
--- NOTE | 2021-05-17 04:58 | NUR ---
PATIENT ASSISTED IN REPOSITIONING OXYGEN. PATIENT DENIES ANY FURTHER NEEDS. CALL LIGHT IN REACH.
--- NOTE | 2021-05-17 06:10 | NUR ---
PATIENTS VITALS TAKEN AND RECORDED. GATES EMPTIED AND GATES CARE COMPLETED. REPOSITIONED IN BED. PATIENT REMAINS ON 40/100 OF VAPOTHERM. PATIENT PROVIDED WITH FRESH WATER AND COFFEE. PATIENT DENIES ANY NEEDS. CALL LIGHT IN REACH.
--- NOTE | 2021-05-17 07:26 | NUR ---
Patient resting in bed, respirations non labored. Patient remains on vapotherm 40L/100% and non rebreather mask. Patient has no needs or distress. Personal supplies and call light within reach. CPOX intact sp02 90%.
--- NOTE | 2021-05-17 09:23 | NUR ---
Daughter here to visit with patient.
--- NOTE | 2021-05-17 10:24 | NUR ---
PLACED PT ON BEDPAN PER REQUEST.
--- NOTE | 2021-05-17 10:30 | NUR ---
Pt sitting with 02 on his head, aid attempting to get him to place on his nose, sat 88%. Pt denies needs.
--- NOTE | 2021-05-17 10:47 | NUR ---
In to assist patient with fernando care after bowel movement. Patient Had a large soft bowel movement. Patient encouraged to drink water at this time. No notable distress. Patient remains on vapotherm 40L/100% with non rebreather @ 15L. Daughter continues to visit with patient.
--- NOTE | 2021-05-17 10:49 | NUR ---
PATIENT OFF OF BEDPAN, 2PA. MATEO CARE AND CATH CARE DONE. PATIENT REPOSITIONED IN BED, RN IN ROOM. VITLAS AND I&O'S CHARTED. ENCOURAGED TO DRINK MORE WATER. CALL LIGHT IN REACH. NO FURTHER NEEDS AT THIS TIME.
--- NOTE | 2021-05-17 11:51 | NUR ---
Dr. Best updated with current urine output.
--- NOTE | 2021-05-17 18:34 | NUR ---
Patient resting in bed, awake with no distress. Patient has vapotherm 40L/100% with non rebreather mask @ 15L. Patient frequently removes and repositions his mask resulting in intermittent oxygen desaturation in high 70's to low 80's-frequent prompting and education required to ensure mask remains intact. CPOX remains intact for continuous monitoring.
--- NOTE | 2021-05-17 19:10 | NUR ---
RECEIVED REPORT FROM DAY SHIFT RN. RN AND RIVETER HAND IN ROOM CHANGING PATIENT. NO NEEDS NOTED. CALL LIGHT IN REACH.
--- NOTE | 2021-05-17 19:55 | NUR ---
RN is in the room. Patient was repositioned. Vitals, I&Os are done. Patient's oxygen is low and RN is aware.
--- NOTE | 2021-05-17 20:06 | NUR ---
PATIENT ASSESMENT COMPLETED. PATIENTS VITALS TAKEN AND RECORDED. INTAKE AND OUTPUT RECORDED. GATES EMPTIED AND GATES CARE COMPLETED. PATIENTS LOWER LUNGS SOUND COARSE. PATIENT IS NEEDING AN INCREASE IN OXYGEN. PATIENT REPOSITIONED. PATIENT PROVIDED WITH FRESH WATER. PATIENT GIVEN PRN SLEEPING MEDS AND PRN TYLENOL PER REQUEST AND PER ORDER. PATIENT EDUCATED ON THE IMPORTANCE OF WEARING HIS OXYGEN. PATIENT VERBALIZES UNDERSTANDING. NO FURTHER NEEDS NOTED. CALL LIGHT IN REACH. PATIENT REMAINS ON VAPOTHERM 40/100 AND NON-REBREATHER @ 15L.
--- NOTE | 2021-05-17 23:29 | NUR ---
PATIENT IS RESTING IN BED WATCHING TV. PATIENT DENIES ANY NEEDS. VAPOTHERM @ 40/100. CALL LIGHT IN REACH.
--- NOTE | 2021-05-18 00:52 | NUR ---
PATIENT REPOSITIONED IN BED. PATIENT REQUESTED A TYLENOL AND COUGH MEDICATION. PATIENT GIVEN PRN MEDICATION PER REQUEST. PATIENT REMAINS ON VAPOTHERM 40/100. PATIENT DENIES ANY FURTHER NEEDS. ICE WATER REFRESHED.
--- NOTE | 2021-05-18 02:44 | NUR ---
PATIENT IS RESTING IN BED WITH EYES CLSOED, CPOX READINGS ARE WNL. PATIENT REMAINS ON VAPOTHERM 40/100. CALL LIGHT IN REACH.
--- NOTE | 2021-05-18 03:54 | NUR ---
PATIENT ASSISTED IN TURNING TV OFF. PATIENT DENIES ANY FURTHER NEEDS. CALL LIGHT IN REACH.
--- NOTE | 2021-05-18 05:53 | NUR ---
Vitals, I&Os are complete. Patient's water was changed. Patient oxygen was 90 before putting on the non-rebreather.
--- NOTE | 2021-05-18 05:57 | NUR ---
PATIENT IS RESTING IN BED. WINDOW SHADE CUTTER PRESENT IN ROOM OBTAINING VITALS. PATIENT DENIES ANY SOB. PATIENT REMAINS ON VAPOTHERM 40/100. FRESH ICE WATER PROVIDED.
--- NOTE | 2021-05-18 07:15 | NUR ---
this rn received report from [place]. pt watching tv this am and has non rebreather in place
--- NOTE | 2021-05-18 09:30 | NUR ---
THIS RN IN PTS ROOM TO GIVE PT MORNING MEDS. PT STATES "I NEED TO TAKE A SHIT" THIS RN ASSISTED PT ONTO AND OFF OF THE BEDPAN. PT ABLE TO HAVE BM. THIS RN ATTEMPTED FOR A NEW IV- NOT ABLE TO GET ONE.
--- NOTE | 2021-05-18 12:19 | NUR ---
PT AWAKE IN ROOM, PT USED BEDPAN, THEN UP TO CHAIR WITH 1 PA AND FWW. LINEN CHANGED, CALL LIGHT WITHIN REACH, PHONE WITHIN REACH, LUNCH GIVEN. LORETO YIN IN ROOM TO MONITOR OXYGEN. NO FURTHER NEEDS AT THIS TIME.
--- NOTE | 2021-05-18 14:00 | NUR ---
PT BACK TO BED BY MARII MCNEIL AND NOLBERTO RN. PT APPEARS TO BE COMFORTABLE IN BED AT THIS TIME AND IS GETTING A NEB TREATMENT
--- NOTE | 2021-05-18 14:12 | NUR ---
PATIENT'S INTAKE HAS DECREASED OVER THE PAST FEW DAYS. WILL ADD ENSURE TO COME UP WITH MEALS.
--- NOTE | 2021-05-18 16:55 | NUR ---
pts daughter called for an update on pt. this rn provided her with a generalized update. all questions answered to the best ability of this rn
--- NOTE | 2021-05-18 18:10 | NUR ---
GREGORIO FROM [employer]ED STAFF TO PT THROWING HIS PILLOWS AT DOOR. PT WANTING STAFFS ATTENTION TO SHAVE HIM. THIS RN INFORMED PT THAT THIS WAS NOT APPROPRIATE BEHAVIOR. THIS RN REEDUCATED PT TO CALL LIGHT BUTTONS ON SIDE OF BED. PT DESATED DUE TO TAKING OFF OXYGEN TO SHOW THIS RN THAT HE NEEDED TO BE SHAVED. THIS RN SHAVED PT. ENSURED THAT PT HAD CALL LIGHT WITHIN REACH
--- NOTE | 2021-05-18 19:15 | NUR ---
SHIFT REPORT RECEIVED FROM JEANINE DANGELO. PT RESTING IN BED. SPO2 90% ON VAPOTHERM 40/100 AND 15L NRB. PT WANTS BLANKETS ADJUSTED, EDUCATION ON SELF CARE PROVIDED. NO OTHER NEEDS. CALL LIGHT IN REACH.
--- NOTE | 2021-05-18 21:15 | NUR ---
ASESSMENT, VS AND I&O COMPLETED. GCS 15, A&O TO PERSON AND PLACE. LUNGS CLEAR IN UPPER LOBES, DIM IN LOWER LOBES. HEART TONES REGULAR. CMS INTACT. SCHEDULED MEDS PROVIDED. ICE WATER PROVIDED. IVs CDI, FLUSHED WELL, WNL. ABD SOFT, NONTENDER, BOWEL TONES ACTIVE. GATES WNL, YELLOW, CLEAR. GATES CARE PROVIDED. SPO2 87% WITH VAPOTHERM 40/100 AND NRB @ 15L IN PLACE. NO OTHER NEEDS AT THIS TIME. CALL LIGHT IN REACH.
--- NOTE | 2021-05-18 22:30 | NUR ---
PT SPO2 DROPS 55% SPO2. PT HAS TAKEN OFF HIS VAPOTHERM AND NRB, BOTH REPLACED. PT TAKES SEVERAL MINUTES TO RECOVER TO 85%. PT STAYS NEAR 85% WHEN BOTH DEVICES ARE ON. EDUCATION PROVIDED. CALL LIGHT IN REACH.
--- NOTE | 2021-05-18 23:25 | NUR ---
pt had taken O2 nasal prongs off, desatted to 80%, vapotherm and NRB mask back on, cpox #[address] 86% at this time now.
--- NOTE | 2021-05-19 00:11 | NUR ---
PT RESITNG IN BED, WATCHING TV. SPO2 86% ON VAPOTHERM 40/100 AND NRB @ 15L. NO NEEDS AT THIS TIME. CALL LIGHT IN REACH.
--- NOTE | 2021-05-19 00:18 | NUR ---
pt took nasal o2 prongs off and NRB mask off, dessateed, back on Vapotherm and NRB back on 85% per CPOX
--- NOTE | 2021-05-19 00:46 | NUR ---
Took NRB and vapothern prong off, desatted to 72%, both back on Vapotherm 40L 100% FIO2, and NRB mask on, sats back at 86% at this time
--- NOTE | 2021-05-19 03:21 | NUR ---
pt desatting to 76%, one nasal prong off, and NRB mask senior care off. Repositioned, proned to L side, srinivas ROSAS. was cooperative, it took him several minutes to recuperate from 79-80% with both vapotherm and NRB mask on. pt calm, sats cpox 84-86%, laying on L side
--- NOTE | 2021-05-19 03:40 | NUR ---
Still proned on L side, both Vapotherm and NRB mask on. sats 89% since last noted, has not fluctuated. no distress noted, resting, eyes closed. cpox#8
--- NOTE | 2021-05-19 05:20 | NUR ---
PT SPO2 IN THE UPPER 70s, PT REPOSITIONED ON RIGHT SIDE. PT BEGINS TO COUGH AND SPITS OUT A BRIGHT RED SPUTUM, COLLECTED INTO SPECIMEN CUP. SPO2 SLOWLY RETURNS TO 85% ON 40/100 VAPOTHERM WITH 15L NRB. PT HAS BEEN DIFFICULT TO MAINTAIN @ 85% THIS SHIFT WITH MANY EPISODES OF PT DROPPING INTO THE 70s. PT DOES NOT DO WELL WITH POSITIONING, WILL NOT PRONE. PT ALSO REMOVES NRB AND IS UNAWARE WHEN THE VAPOTHERM IS NOT IN HIS NOSE. PT HAD ABOUT 1 HOUR OF TIME THAT HIS SPO2 STAYED NEAR 89% THIS MORNING WHILE ON LEFT SIDE WITH VAPOTHERM 40/100 AND 15L NRB. PT HAS SLEPT VERY LITTLE AND BECOMES AGGITATED AT TIMES CONCERNING REQUESTS TO KEEP O2 ON AND POSITIONING. NOTIFED BY [employer] MESSAGING OF SPUTUM.
--- NOTE | 2021-05-19 07:39 | NUR ---
REPORT RECEIVED FROM LORETO MICHELE. PT HAS REMOVED NRB AND VAPOTERM CANNULA AND DROPS TO 52% OXGYEN SATURATIONS. THIS RN AND LENY RN TO BEDSIDE. VAPOTHERM AT 40LPM AND 100% FIO2 REPLACED. OXGYEN SATURATIONS CLIB TO 83-84%. PT REPOSITIONED TO RIGHT SIDE AND WITH NO ADDITIONAL INPROVMENET. PT NOT RESPONDING TO QUESTIONS WITH VOCAL ANSWERS, PT OPENS EYES TO VOICE AND SQUEEZES THIS RN'S HAND. DR. SCHRADER CALLED AND UPDATED ON PTS STATUS. NEW ORDERS FOR CPAP PLACED WELL TRANSFER TO CCU. KELLEY RT, TO BEDSIDE TO WORK WITH PT. OXGYEN SATURATIONS REMAIN 85% WITH HEART RATE OF 106 AND RR OF 36. BED RAILS UP. CALL LIGHT WITHIN REACH. CCU CALLED AND NOTIFIED OF TRANSFER.
--- NOTE | 2021-05-19 07:53 | NUR ---
REPORT CALLED TO LORETO WELLS, WHO STATES HER QUESTIONS HAVE BEEN ANSWERED. PT TRANSFERED TO CCU.
--- NOTE | 2021-05-19 08:15 | NUR ---
PT ARRIVE IN CCU AROUND 0800. C-PAP WAS SET UP RIGHT AWAY BY RT. PT TOLERAING SO FAR. ALL LOBES ARE DIMINISHED, THE BASES ARE TIGHT. WE ATTEMPTED TO PRONE PT, BUT PT DID NOT TOLERATE IT AT ALL. AT THIS TIME MAINTENANCE REPRESENTATIVE IS CALLING IN FORGESMITH FOR INTUBATION. RR IN THE 30'S, PT HAS RETRACTIONS, PT APPEARS EXHAUSTED OVERALL. O2 SATS AT THIS TIME IN THE LOW 80'S TO MID 80'S AT BEST. ABD SOUNDS ARE RARE. ABD IS SOFT TO TOUCH. URINE IS HARIS IN COLOR. NO PERIPH. EDEMA NOTED. PT ONLY ABLE TO ANSWER WITH WORDS DUE TO SOB WITH TALKING.
--- NOTE | 2021-05-19 09:13 | NUR ---
PT STILL ON C-PAP FIO2 10%. WAITING ON FAMILY FOR INTUBATION. AT THIS TIME PT IS HOLDING ON. RR MID 20'S, O2 SATS LOW 90'S, HR AROUND 100.
--- NOTE | 2021-05-19 09:45 | NUR ---
0843- HR 112, 89% C-PAP MAXED OUT, 30 RR, 139/77 (95) 0857- WAX PATTERN ASSEMBLER HARIS ARRIVES 0855- HR 106, 92% C-PAP, 30 RR, 143/61 (82) 0900- WAITING ON DAUGHTER TO ARRIVE 09- DAUGHTER HAS ARRIVED 924- CRAN HARIS IN ROOM NOW, RT KELLEY IN ROOM, GIS PHYSICAL SCIENTISTLORETO HINES IN ROOM, STUDENT LORETO LOYD IN ROOM, LORETO WELLS IN ROOM 929- INTUBATION STARTED 930- PROPOFOR 100MCG GIVEN IV SUCC. 140MG GIVEN IV KETAMIN 30MG GIVEN IV 931- INTUBATION ENDED, TUBE 7.5 SEIZE USED, TUBE IS 23CM AT THE LIP 937- HARIS ADMINISTERED 50MG OF ROCURONIUM IV.
--- NOTE | 2021-05-19 11:00 | NUR ---
WAITING ON LIFE FLIGHT CREW. PROPFOR DRIP REMAINS ON 40MCG/KG/HR, WAITING ON PHARMACY TO BRING ROCURONIUM AND FENTANYL DRIPS. RASS SCORE -5. WILL CONTINUE TO MONITOR.
--- NOTE | 2021-05-19 11:55 | NUR ---
PT LEFT UNIT WITH LIFE FLIGHT AT 1142. TRANSITION TO STRETCHER WAS WITHOUT INCIDENT. LIFE FLIGHT CREW STARTED FENTANYL DRIP SINCE IT WAS NOT AVAILABLE BEFORE. ROCURNIUM DRIP WAS NOT STARTED BEFORE PT LEFT BECAUSE IT WAS NOT AVAILABLE TO US. REPORT CALLED TO SANAM DANGELO AT [facility] AT 1150. PT LEFT UNIT ON PROPOFOL DRIP AT 50MCG/KG/HR.
--- NOTE | 2021-05-19 12:23 | NUR ---
PT HAS JUST BEEN INTEBATED, WILL BE FLOWN TO [facility]. LEFT A L.F. PACK LIST FOR LORETO URENA TO YOLANDA E TO PT'S DAUGHTER. HE ACKNOWLEDGED. WILL FOLLOW
== END 2021-05-19 11:42 | disposition short-term general hospital (02) | DRG 208 ==
LOC: ED 18:48 → CCU 21:21 → MS 05-01 10:25 → CCU 05-03 09:27 → MS 05-09 16:15 → CCU 05-19 08:18
PROVIDERS: ADMIT Internal Medicine; ATTEND Internal Medicine
PROC: 3E0333Z Introduction of Anti-inflammatory into Peripheral Vein, Percutaneous Approach (ICD-10-PCS; principal; 2021-04-27)
PROC: 5A09457 Assistance with Respiratory Ventilation, 24-96 Consecutive Hours, Continuous Positive Airway Pressure (ICD-10-PCS; 2021-04-27)
PROC: XW033E5 Introduction of Remdesivir Anti-infective into Peripheral Vein, Percutaneous Approach, New Technology Group 5 (ICD-10-PCS; 2021-04-28)
PROC: 3E02340 Introduction of Influenza Vaccine into Muscle, Percutaneous Approach (ICD-10-PCS; 2021-04-28)
PROC: XW0DXM6 Introduction of Baricitinib into Mouth and Pharynx, External Approach, New Technology Group 6 (ICD-10-PCS; 2021-05-03)
PROC: 5A0945A Assistance with Respiratory Ventilation, 24-96 Consecutive Hours, High Flow/Velocity Cannula (ICD-10-PCS; 2021-05-03)
PROC: 5A1935Z Respiratory Ventilation, Less than 24 Consecutive Hours (ICD-10-PCS; 2021-05-19)
PROC: 0BH17EZ Insertion of Endotracheal Airway into Trachea, Via Natural or Artificial Opening (ICD-10-PCS; 2021-05-19)
DX: U07.1 COVID-19 (principal); J12.82 Pneumonia due to coronavirus disease 2019; J96.01 Acute respiratory failure with hypoxia; J44.1 Chronic obstructive pulmonary disease with (acute) exacerbation; N17.9 Acute kidney failure, unspecified; I47.2 Ventricular tachycardia; N40.1 Benign prostatic hyperplasia with lower urinary tract symptoms; G47.00 Insomnia, unspecified; R33.8 Other retention of urine; E86.0 Dehydration; E78.5 Hyperlipidemia, unspecified; E78.00 Pure hypercholesterolemia, unspecified; E87.5 Hyperkalemia; Z23 Encounter for immunization; I10 Essential (primary) hypertension; Z86.73 Personal history of transient ischemic attack (TIA), and cerebral infarction without residual deficits; Z87.891 Personal history of nicotine dependence; Z79.899 Other long term (current) drug therapy
CPT/HCPCS: 31500; 36600; 71045; 71260; 80048; 80053; 80500; 82803; 83605; 83735; 83880; 84484; 85025; 85379; 85651; 87040; 87070; 87205; 90694; 93005; 93010; 94002; 94640; 94660; 94667; 94668; 94760; 94762; 94799; 96374; 97110; 97161; 97166; 99285-25; A9270; C9803; G0008; J1100; J1630; J1650; J1956; J2543; J2704; J3010; J7030; J7040; J7050; J7121; Q9967; U0003